=== PATIENT | male | born 1960 | race Caucasian/White ===

== ENCOUNTER 2024-12-13 09:21 | Emergency (ER) | payer BC, MEDICARE, SELFPAY ==
--- OUTSIDE RECORDS SUMMARY | 2024-05-20 08:30 | XMS_ITS ---
Author Organization [facility] y & Otolaryngology [facility], [facility] Address [address], [place] [id number] Care Team Providers Care Continuity Writer Name Role Phone Sharla Marrero MD Primary Care Provider Unavail Stephan Turner Unavailable [phone] REASON FOR VISIT F/U AND BARIUM SWALLOW RSLTS Encounters Encounter Location Date Provider Diagnosis [facility] [place] [place], [place] [address] [facility] [address] [place] [address] 05/20/2024 Stephan Mota Plan Of Treatment Next Appt Details Provider Name:Stephan owens, 01/06/2025 02:10:00 PM, [address] [facility], [address], [place], [address], Progress Notes * AUSTIN GUZMANDOB: (64 yo M)Acc No.[id number]:05/20/2024 UNLOCKED PROGRESS NOTE Established office visit w/o ut test Patient: AUSTIN FOWLER Provider: Pa Mota MD :1960 A ge:63 Y S ex:Male Date:05/20/2024 Address:[address] [place] [address] [place] Pcp:Sharla Marrero MD Subjective: * Chief Complaints: * F /U AND BARIUM SWALLOW RSLTS * Electronic signature of Gonzalez Mota MD on 12/13/2024 at 01:19 PM EDT Sign off status: Pending * Provider: Pa Mota MD Date: 0 05/20/2024 Generated for Nichelle sierra/Medina/Kavonitting on: 1 01:19 PM EDT
--- OUTSIDE RECORDS SUMMARY | 2024-07-15 09:30 | XMS_ITS ---
Author Organization [facility] inic Address [address] [place] [address] Care Team Providers Care Sports Marketing Internship Name Role Phone Bharath Killian Primary Care Provider DARIEL Severion Unavailable [phone] Allergies No Known Allergies REASON FOR VISIT new sleep eval Medications Medication SIG (Take, Route, Frequency, Duration) Notes Start Date End Date Status clonazePAM Active Temazepam 30 MG Capsule 1 capsule at bed time as needed Orally Once a day Active Levothyroxine Sodium 125 MCG Tablet 1 tablet in the morning on an empty stomach Orally Once a day Active Sertraline HCl 50 MG Tablet 1 tablet Ora lly Once a day Active Jardiance 25 MG Tablet 1 tablet in the m orning Orally Once a day Active Carvedilol 12.5 MG Tablet 1 tablet with food Orally Twice a day Active Atorvastatin Calcium 40 MG Tablet 1 tablet Orally Once a day Active Xarelto 20 MG Tablet 1 tablet with food Orally Once a day Active Problems Problem Type SNOMED Code ICD Code Onset Dates Problem Status W/U Status Risk Notes Problem Primary insomnia (4328246) Chronic Insomnia Disorder (F51.01) Active confirmed Vital Signs Height 69 in 07/15/2024 Weight 180 lbs 07/15/2024 BMI 26.58 kg/m2 07/15/2024 Encounters Encounter Location Date Provider Diagnosis [facility] [address] [place] [address] 07/15/2024 DARIEL LOWRY Obstructive sleep apnea (adult) (pediatric) G47.33 and Chronic Insomnia Disorder F51.01 Assessments Encounter Date Diagnosis (ICD Code) Assessment Notes Treatment Notes Treatment Clinical Notes Section Notes 07/15/2024 Obstructive sleep apnea (adult) (pediatric) (ICD-10 - G47.33) NURSE VISIT: For mask fitting 07/15/2024 Chronic Insomnia Disorder (ICD-10 - F51.01) Move bedtime to 11:30PM Take melatonin 1 mg of melatonin 2 hts before bedtime. I would like to taper down temazepam and clonazepam and change to ambien, lunesta or zeleplon Plan Of Treatment Treatment Notes Assessment Notes Obstructive sleep apnea (adult) (pediatr ic) NURSE VISIT: For mask fitting Chronic Insomnia Disorder Move bedtime to 11:30PM Take melatonin 1 mg of melatonin 2 hts before bedtime. I would like to taper down temazepam and clonazepam and change to ambien, lunesta or zeleplon Pending Test Test Name Order Date CPAP download 07/15/2024 Next Appt Details Follow Up: 4 Weeks, Reason: CHRONIC INSOMNIA MANAGEMENT History and Physical Notes * HPI (History of Present Illness) Category Sub-Category Detail Notes Category Not es RECENT INVESTIGATIONS: The p atient reports he is unable to sleep, he fall asleep quick and after 2 hrs he toss and turn, he has sleep apnea and sleeps with a CPAP device. He has been going through cancer treatment for about 4 years, he has neck cancer and unable to swallow, he is using [place] get [place] the [place]. He was 330lbs and now he is 180lbs. He goes to bed most of the time around 10:00pm, and takes. His sleep window is around 10:30 PM, when he wakes up he tries to go back to sleep, and get up around 4:30AM becuase he could not sleep. Examination Category Sub-Category Detail Notes Category Not es General Examination GENERAL APPEARANCE: normal, alert, in no acute distress, well developed, well nourished Progress Notes * GUILLERMOIsaiah STRONGDOB: [birth year] (64 yo M)Acc No.[id number]:07/15/2024 Patient: Isaiah Gilbert Provider: Lissett LOWRY MD :1960 A ge:63 Y S ex:Male Date:07/15/2024 Address:[address] [place] [address] , [facility] Pcp:Bharath [place] Subjective: * Chief Complaints: * N ew sleep eval * HPI: R ECENT INVESTIGATIONS:: The patient reports he is unable to sleep, he fall asleep quick and after 2 hrs he toss and turn, he has sleep apnea and sleeps with a CPAP device. He has been going through cancer treatment for about 4 years, he has neck cancer and unable to swallow, he is using [place]AP which [place] get from the [place]. He was 330lbs and now he is 180lbs. He goes to bed most of the time around 10:00pm, and takes. His sleep window is around 10:30 PM, when he wakes up he tries to go back to sleep, and get up around 4:30AM becuase he could not sleep. * Medical History: YING Chronic insomnia Neck cancer H/o quadruple bypass h/o left arm DVT Medical History Verified * Medications: T akingJardiance 25 MG Tablet 1 tablet in the morning Orally Once a day Sertraline HCl 50 MG Tablet 1 tablet Orally Once a day Levothyroxine Sodium 125 MCG Tablet 1 tablet in the morning on an empty stomach Orally Once a day Atorvastatin Calcium 40 MG Tablet 1 tablet Orally Once a day Xarelto 20 MG Tablet 1 tablet with food Orally Once a day Carvedilol 12.5 MG Tablet 1 tablet with food Orally Twice a day clonazePAM Temazepam 30 MG Capsule 1 capsule at bedtime as needed Orally Once a day Medication List reviewed and reconciled with the patientTaking Jardiance 25 MG Tablet 1 tablet in the morning Orally Once a day Taking Sertraline HCl 50 MG Tablet 1 tablet Orally Once a day Taking Levothyroxine Sodium 125 MCG Tablet 1 tablet in the morning on an empty stomach Orally Once a day Taking Atorvastatin Calcium 40 MG Tablet 1 tablet Orally Once a day Taking Xarelto 20 MG Tablet 1 tablet with food Orally Once a day Taking Carvedilol 12.5 MG Tablet 1 tablet with food Orally Twice a day Taking clonazePAM Taking Temazepam 30 MG Capsule 1 capsule at bedtime as needed Orally Once a day Medication List reviewed and reconciled with the patient * Allergies: N .K.D.A.yesAllergies Verified. Objective: * Vitals: H t:69in, Wt:180lbs, BMI:26.58Index, Ht-cm: 175.26 cm, Wt-k.65 kg. * Examination: G eneral Examination: GENERAL APPEARANCE: n ormal, alert, in no acute distress, well developed, well nourished. Assessment: * Assessment: 1. O bstructive sleep apnea (adult) (pediatric) - G47.33 (Primary) 2 . C hronic Insomnia Disorder - F51.01 Plan: * Treatment: Notes: NURSE VISIT: For mask fitting???2.?Chronic Insomnia Disorder? Notes: Move bedtime to 11:30PM Take melatonin? 1 mg of melatonin 2 hts before bedtime.? I would like to taper down temazepam and clonazepam and change to ambien, lunesta or zeleplon? ? * Follow Up: 4 Weeks (Reason: CHRONIC INSOMNIA MANAGEMENT) Billing Information: * Procedure Codes: * Electronic signature of THERESE LOWRY MD on 12/13/2024 at 01:20 PM EDT Sign off status: Pending * Provider: Lissett LOWRY MD Date: 0 07/15/2024 Generated for Nichelle sierra/Medina/Kavonitting on: 1 01:20 PM EDT
--- OUTSIDE RECORDS SUMMARY | 2024-07-30 04:30 | XMS_ITS ---
Author Organization [facility] inic Address [address] [facility] [place] [address] Care Team Providers Care Academic Registrar Name Role Phone Bharath Killian Primary Care Provider DARIEL Severino Unavailable [phone] REASON FOR VISIT Cpap maintenance , Cpap education,, filter changed, mask fitting Medications Medication SIG (Take, Route, Frequency, Duration) Notes Start Date End Date Status Xarelto 20 MG Tablet 1 tablet with food Orally Once a day Active Atorvastatin Calcium 40 MG Tablet 1 tablet Orally Once a day Active Temazepam 30 MG Capsule 1 capsule at bed time as needed Orally Once a day Active clonazePAM Active Carvedilol 12.5 MG Tablet 1 tablet with food Orally Twice a day Active Sertraline HCl 50 MG Tablet 1 tablet Ora lly Once a day Active Jardiance 25 MG Tablet 1 tablet in the m orning Orally Once a day Active Levothyroxine Sodium 125 MCG Tablet 1 tablet in the morning on an empty stomach Orally Once a day Active Encounters Encounter Location Date Provider Diagnosis [facility] [address] [place] [address] 07/30/2024 DARIEL ARBOLEDA Plan Of Treatment No Information History and Physical Notes * HPI (History of Present Illness) Category Sub-Category Detail Notes Category Not es CURRENTLY THE PATIENT REPORTS THE FOLLOWING COMPLAINTS Patient has a resmed machine from the [place]. He is getting supplies from [place]. He has an diane renetta resp FF mask. The mask is leaking , it does have a tear. Recommendation: patient should clean mask regularly and change this mask because it has worn out. the filter needs to be changed also regularly. Gave patient a sample filter . He will ask for more supplies from [place] and change his mask . He will f/up with Dr Arboleda in October Progress Notes * Isaiah CORDOVADOB: [birth year] (64 yo M)Acc No.[id number]:07/30/2024 CPAP Visit Patient: Isaiah Gilbert Provider: Lissett ARBOLEDA MD :1960 A ge:63 Y S ex:Male Date:07/30/2024 Address:[address] [place] [address] , [facility] [id number] Pcp:Bharath [place] Subjective: * Chief Complaints: * C pap maintenance , Cpap education,Filter changedMask fitting * HPI: C URRENTLY THE PATIENT REPORTS THE FOLLOWING COMPLAINTS: Patient has a resmed machine from the [place]. He is getting supplies from [place]. He has an diane renetta resp FF mask. The mask is leaking , it does have a tear. Recommendation: patient should clean mask regularly and change this mask because it has worn out.? the filter needs to be changed also regularly. Gave patient a sample filter . He will ask for more supplies from [place] and change his mask . He will f/up with Dr Arboleda in October. * Medications: T akingJardiance 25 MG Tablet [...] bedtime as needed Orally Once a day Taking Jardiance 25 MG Tablet 1 tablet in [...] bedtime as needed Orally Once a day Plan: * Procedure Codes: 9 4660 POS AIRWAY PRESSURE, CPAP Billing Information: * Procedure Codes: 78158 POS AIRWAY PRESSURE, CPAP. * Electronic signature of THERESE ARBOLEDA MD on 12/13/2024 at 01:19 PM EDT Sign off status: Pending * Provider: Lissett ARBOLEDA MD Date: 0 07/30/2024 Generated for Nichelle sierra/Medina/eTransmitting on: 1 01:19 PM EDT
--- OUTSIDE RECORDS SUMMARY | 2024-10-26 08:30 | XMS_ITS ---
Author Organization [facility] y & Otolaryngology [facility] Address [address] [place], [place] [id number] Care Team Providers Care Virtual Office Assistant Name Role Phone Sharla Marrero MD Primary Care Provider Stephan Parr Unavailable [phone] Allergies No Known Allergies REASON FOR VISIT coughing up blood, skin rash in his cheeks Medications Medication SIG (Take, Route, Frequency, Duration) Notes Start Date End Date Status Xarelto 20 MG Tablet Oral; Duration: 30 Days Active Keytruda Active Jardiance 25 MG Tablet Oral; Duration: 90 Days Active amLODIPine Besylate 10 MG Tablet Oral; Duration: 90 Days Acti ve Atorvastatin Calcium 40 MG Tablet Oral; Duration: 90 Days Acti ve Carvedilol 3.125 MG Tablet Oral; Duration: 30 Days Active Social History Tobacco Use: Social History Observation Description Date Details (start date - stop date) Never Smoker NA - NA Social History Alcohol/Drugs: Social Info Question Answer Notes Drugs Have you used drugs other than those for medical reasons in the past 12 months? No Drug/Alcohol: Social Info Question Answer Notes AUDIT-C (Standard) Did you have a drink containing alcohol in the past year? Yes How often did you have a drink containing alcohol in the past year? Never (0 point) How many drinks did you have on a typical day when you were drinking in the past year? 1 or 2 drinks (0 point) How often did you have six or more drinks on one occasion in the past year? 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 Problem Coughing up blood (74891194) Coughing up blood (R04.2) Active confirmed Vital Signs Temperature 96.8 degrees Fahrenheit 10/27/19 25 Blood pressure systolic 133 mm Hg 10/27/19 25 Blood pressure diastolic 81 mm Hg 025 Heart Rate 59 /min 10/26/2024 Respiratory Rate 16 /min 10/26/2024 Height 69 in 10/26/2024 Weight 180 lbs 10/26/2024 BMI 26.58 kg/m2 10/26/2024 Oximetry 96 % 10/26/2024 Procedures Procedure Date Ordered Date Performed Result Body Sit e FLEXIBLE LARYNGOSCOPY (CURRENT ORDER) 10/26/2024 N/A Encounters Encounter Location Date Provider Diagnosis [facility] [address] [place], [place] [phone] 10/26/2024 Stephan Mota Carcinoma of tongue C02.9 ; Coughing up blood R04.2 and Oropharyngeal dysphagia R13.12 Assessments Encounter Date Diagnosis (ICD Code) Assessment Notes Treatment Notes Treatment Clinical Notes Section Notes 10/26/2024 Carcinoma of tongue (ICD-10 - C02.9) 10/26/2024 Coughing up blood (ICD-10 - R04.2) 10/26/2024 Oropharyngeal dysphagia (ICD-10 - R13.12) Plan Of Treatment Next Appt Details Follow Up: 1 Week, Reason: L abs results Provider Name:Stephan owens, 01/06/2025 02:10:00 PM, [address] [facility], [address], [place], [address], History and Physical Notes * HPI (History of Present Illness) Category Sub-Category Detail Notes Category Not es THROAT Problems Since 2 week s ago, the patient had a sunburn which started peeling, and then it became itchy, so he scratched himself at night and now has bloody, purple scabs along with a rash. The patient states that since 3 weeks ago, he has been having cough productive with blood clots, and he was admitted to the hospital for a pneumonia and was treated with antibiotics, however, his cough has not improved. He states that the cough comes with blood clots and sometimes with pink spots, and prado his throat. He states that the back of his throat is on fire when he coughs. Patient is s/p left hemiglossectomy/mandibulectomy SCCA. 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 He also states that after coughing, he was pain when swallowing Examination Category Sub-Category Detail Notes Category Not es General Examination GENERAL APPEARANCE: normal, alert, well hydrated, in no distress , well developed, well nourished HEAD: normocephalic, atrau matic EYES: pupils equal, round, reactive to light and accommodation EARS: bilateral , normal, auditory canal clear, hearing intact to whispered voice, tympanic membrane intact, clear NOSE: No evidence of nasal polyps or tumors, no pus, no synechiae, septum deviated to the left with spur, turbinate hypertrophy, petechiae in the back of the nose. THROAT: clear NECK/THYROID: Neck supple, full ra nge of motion, no cervical lymphadenopathy, evidence of Left modified neck dissection MRND SKIN: multiple bilateral f acial excoriations and dried blood consistent with pruritus described LYMPH NODES: normal, no cervical adenopathy ORAL CAVITY: mucosa moist, L base of tongue and palate defect, NERD Progress Notes * AUSTIN GUZMANDOB: (64 yo M)Acc No.[id number]:10/26/2024 UNLOCKED PROGRESS NOTE Established office visit w/o ut test Patient: AUSTIN FOWLER Provider: Pa Mota MD :1960 A ge:63 Y S ex:Male Date:10/26/2024 Address:[address] [place] [address] , [id number] Pcp:Sharla Marrero MD Subjective: * Chief Complaints: * C oughing up bloodSkin rash in his cheeks * HPI: T HROAT Problems: Since 2 weeks ago, the patient had a sunburn which started peeling, and then it became itchy, so he scratched himself at night and now has bloody, purple scabs along with a rash. The patient states that since 3 weeks ago, he has been having cough productive with blood clots, and he was admitted to the hospital for a pneumonia and was treated with antibiotics, however, his cough has not improved. He states that the cough comes with blood clots and sometimes with pink spots, and prado his throat. He states that the back of his throat is on fire when he coughs. Patient is s/p left hemiglossectomy/mandibulectomy SCCA. 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 He also states that after coughing, he was pain when swallowing. * ROS: G eneral/Constitutional: Denies F ever. D enies C hills. D enies m alaise. E ndocrine: Denies C old intolerance. D enies D ifficulty sleeping. D enies E xcessive sweating. D enies E xcessive thirst. D enies F requent urination. D enies W eakness. D enies W eight loss. . .Ophthalmologic: Denies E ye pain. D enies V ision loss. D enies?Excessive tears. D enies B lurred vision. D enies D iplopia. D enies I rritation. D enies D ischarge. D enies P hotophobia. E NT: ... S ee HPI. C ardiovascular: Denies C hest pains. D enies P alpitations. D enies S yncope. D enies D yspnea on exertion. D enies O rthopnea. D enies?PND. D enies P eripheral edema. R espiratory: Denies C ough. D enies D yspnea. D enies E xcessive sputum. D enies H emoptysis. D enies W heezing. . .Gastrointestinal: Denies N ausea. D enies V omiting. D enies D iarrhea. . .Musculoskeletal: Denies B ack pain. D enies J oint pain. D enies?Joint swelling. D enies M uscle cramps. D enies M uscle weakness. D enies?Stiffness. . .Skin: Denies R nikkie. D enies I tching. D enies U lcers/growths. D enies E xcess scarring. D enies B leeding problems. D enies D ryness. D enies S uspicious lesions. N eurologic: Denies T ransient paralysis. D enies W eakness.?Denies P aresthesias. D enies S eizures. D enies S yncope. D enies T remors. D enies V ertigo. L ymphatic: Denies A bnormal bruising. D enies B leeding. D enies E nlarged lymph nodes. A llergy/Immunology: Denies U rticaria. D enies P ersistent infections.?Denies H IV exposure. * Medical History: Cancer head and neck 2019 - remission - 2022 Hx of Heart attack 10/2023 GERD Medical History Verified * Surgical History: anterior neck mass removal Tongue reconstruction 2021 quadruple bypass lung partial resection 2022 lymphectomy ( 9 lymph nodes) Surgical History verified. * Hospitalization/Major Diagno stic Procedure: Denies Past Hospitalization. Hospitalization Verified. * Family History: N o Family History documented.. F amily History Verified.. * Social History: T obacco Use: T obacco Control (Standard) T obacco use: N onsmoker A lcohol/Drugs: D rugs H ave you used drugs other than those for medical reasons in the past 12 months? N o D rug/Alcohol: A JULIANO-C (Standard) D id you have a drink containing alcohol in the past year? Y es H ow often did you have a drink containing alcohol in the past year? N ever (0 point) H ow many drinks did you have on a typical day when you were drinking in the past year? 1 or 2 drinks (0 point) H ow often did you have six or more drinks on one occasion in the past year? 2 to 4 times a month (2 points) P oints 2 I nterpretation N egative S ocial History Verified. * Medications: T Sai Jardiance 25 MG Tablet Oral Carvedilol 3.125 MG Tablet Oral Atorvastatin Calcium 40 MG Tablet Oral amLODIPine Besylate 10 MG Tablet Oral Xarelto 20 MG Tablet Oral Medication List reviewed and reconciled with the patientTaking Benji Taking Jardiance 25 MG Tablet Oral Taking Carvedilol 3.125 MG Tablet Oral Taking Atorvastatin Calcium 40 MG Tablet Oral Taking amLODIPine Besylate 10 MG Tablet Oral Taking Xarelto 20 MG Tablet Oral Medication List reviewed and reconciled with the patient * Allergies: N .K.D.A.yesAllergies Verified. Objective: * Vitals: T emp:96.8F, HR:59/min, BP:133/81mm Hg, Ht: 69 in, Wt:180lbs, BMI:26.58Index, RR:16/min, Oxygen sat %:96%, Ht-cm: 175.26 cm, Wt-k.65 kg. * Examination: G eneral Examination: GENERAL APPEARANCE: n ormal, alert, well hydrated, in no distress , well developed, well nourished. HEAD: n ormocephalic, atraumatic. EYES: p upils equal, round, reactive to light and accommodation. EARS: b ilateral , normal, auditory canal clear, hearing intact to whispered voice, tympanic membrane intact, clear. NOSE: N o evidence of nasal polyps or tumors, no pus, no synechiae, septum deviated to the left with spur, turbinate hypertrophy, petechiae in the back of the nose.. ORAL CAVITY: m ucosa moist, L base of tongue and palate defect, NERD. THROAT: c lear. NECK/THYROID: N umberto supple, full range of motion, no cervical lymphadenopathy, evidence of Left modified neck dissection MRND. LYMPH NODES: n ormal, no cervical adenopathy. SKIN: m ultiple bilateral facial excoriations and dried blood consistent with pruritus described. Assessment: * Assessment: 1. C oughing up blood - R04.2 (Primary) 2 . C arcinoma of tongue - C02.9? 3. O ropharyngeal dysphagia - R13.12 Plan: * Treatment: 2. C arcinoma of tongue L AB: HEPATIC FUNCTION PANEL (Ordered for 10/26/2024) (Collection Date & Time - 11/04/2024) ?LAB: CBC (INCLUDES DIFF/PLT) (Ordered for 10/28/2024) (Collection Date & Time - 11/04/2024)* Warren Francois 10/26/2024 02:32:41 PM EDT > STAT ?LAB: COMPREHENSIVE METABOLIC PANEL (Ordered for 10/28/2024) (Collection Date & Time - 11/04/2024)* Warren Francois 10/26/2024 02:32:52 PM EDT > STAT ?LAB: PT AND PTT (Ordered for 10/28/2024) (Collection Date & Time - 11/04/2024)* Warren Francois 10/26/2024 02:33:02 PM EDT > STAT * Procedures: F lexible Laryngoscopy: Mirror exam was unable to adequately visualize the vocal cords. Under topical anesthesia, the base of the tongue, epiglottis, vallecula, pyriform arytenoids, false and true cords, and postcricoid regions were examined using a flexible scope. All of the above structures were normal except for moderate laryngeal edema. The vocal cords were mobile, and there were no masses,septum deviated to the left with spur, turbinate hypertrophy, petechiae in the back of the nose and throat. * Procedure Codes: G 8427 DOC MEDS VERIFIED W/PT OR [id number] Pt scrn tbco id as non [id number] TOBACCO [id number] FLEXIBLE LARYNGOSCOPY * Preventive Medicine: Counseling: B SC Care goal follow-up plan: Above Normal BMI Follow-up D ietary management education, guidance, and counseling * Follow Up: 1 Week (Reason: Labs results) Billing Information: * Procedure Codes: G8427 DOC MEDS VERIFIED W/PT OR RE. G9903 Pt scrn tbco id as non user. 1036F TOBACCO NON-USER. [id number] FLEXIBLE LARYNGOSCOPY. * Electronic signature of Gonzalez Mota MD on 12/13/2024 at 01:19 PM EDT Sign off status: Pending * Provider: Pa Mota MD Date: 0 10/26/2024 Generated for Nichelle sierra/Medina/Tristan on: 1 01:19 PM EDT
--- NOTE | ~2024-12-13 | CT_ITS ---
CTA CHEST CLINICAL HISTORY: sob, hx throat cancer, spitting up blood . COMPARISON: Chest x-ray today TECHNIQUE: Helical CTA performed from thoracic inlet to upper abdomen IV contrast information not listed in PACS Coronal, sagittal reformats. Multiplanar MIPS CT images acquired with automatic exposure control for dose reduction DLP: 565 mGy-cm FINDINGS: Pulmonary arteries: No PE. Thoracic Aorta: Ascending aortic fusiform aneurysmal ectasia at 4.5 cm. Upper SVC stenosis. Consequent collateral veins. Heart/pericardium: Unremarkable. RV/LV ratio: Normal. Lungs/Pleura: Scattered bilateral airspace disease. Tracheobronchial tree: Patent. Nodes: No enlarged nodes. Small mediastinal and hilar nodes Bones: No acute bony abnormality. Soft tissues: Unremarkable. Visualized upper abdomen: G-tube. Hepatosplenomegaly. Stomach distended. Distal esophageal fluid. IMPRESSION: 1. Bilateral multifocal airspace disease, strongly consider aspiration or superimposed aspiration given below. 2. Distal esophagus fluid-filled and stomach dilated with fluid. 3. G-tube in place but retention balloon within central lumen, would probably benefit from retracting balloon to appose anterior abdominal wall and then reapposing dermal skin disc to abdominal wall 4. No PE. 5. Fusiform aneurysmal ectasia of ascending thoracic aorta at 4.5 cm. Recommend surveillance in one year. 6. Small nonspecific mediastinal nodes. Malignancy cannot be excluded given history of cancer. 7. Severe SVC stenosis. Reviewed, dictated and finalized at location R. IMPRESSION: 1. Bilateral multifocal airspace disease, strongly consider aspiration or supe rimposed aspiration given below. 2. Distal esophagus fluid-filled and stomach dilated with fluid. 3. G-tube in place but retention balloon within central lumen, would probably benefit from retracting balloon to appose anterior abdominal wall and then reap posing dermal skin disc to abdominal wall 4. No PE. 5. Fusiform aneurysmal ectasia of ascending thoracic aorta at 4.5 cm. Recommen d surveillance in one year. 6. Small nonspecific mediastinal nodes. Malignancy cannot be excluded given hi story of cancer. 7. Severe SVC stenosis.
--- NOTE | ~2024-12-13 | XR_ITS ---
Examination: XR chest 2V Clinical History: SOB COUGH Comparison: None Technique: PA and Lateral Findings: Right chest Mediport Cardiomediastinal silhouette normal size and configuration. Scattered small patchy bilateral airspace disease. No acute bony abnormality. IMPRESSION: 1. Bilateral multifocal pneumonia. Reviewed, dictated and finalized at location R.
[2024-12-13 09:31] VITALS: BP 98/66; PULSE 85; RESP 20; TEMP 36.8; O2SAT 98
--- NOTE | 2024-12-13 09:45 | ECG_ITS ---
Test Date: 2024-12-13 09:53:42 Measurements Intervals [place] Rate: 79 P: 16 WI: 140 QRS: -55 QRSD: 109 T: -1 QT: 376 QTc: 432 Interpretive Statements SINUS RHYTHM WITH OCCASIONAL VENTRICULAR PREMATURE COMPLEXES LOW QRS VOLTAGE IN PRECORDIAL LEADS INCOMPLETE RIGHT BUNDLE BRANCH BLOCK LEFT ANTERIOR FASCICULAR BLOCK BORDERLINE ST-T WAVE ABNORMALITY- INFERIOR LEADS BASELINE ARTIFACT- I, II ABNORMAL ECG No previous ECG available for comparison Electronically Signed On 12-13-2024 10:15:42 CDT by Koby Talbot D.O.
[2024-12-13 09:46] VITALS: BP 128/71; PULSE 79; RESP 20; TEMP 36.7; O2SAT 99
[2024-12-13 09:49] VITALS: O2SAT 100
[2024-12-13 10:02] LABS: Hematocrit 41.6 % (42.0-52.0); Hemoglobin 13.5 g/dL (14.0-18.0); Immature Granulocyte Percent A 1.1 % (0-0.5); Lymphocytes Absolute Auto 0.76 K/mm3 (0.9-3.2); Mean Corpuscular HGB Conc 32.5 g/dl (32-36); Mean Corpuscular Hemoglobin 30.3 pg (26-34); Mean Corpuscular Volume 93.3 fl (80-100); Nucleated Red Blood Cells Absolute Auto 0.000 K/mm3 (0.0-0.012); Nucleated Red Blood Cells Perc 0.0 % (0.0-0.2); Platelet Count Result 271 k/mm3 (150-375); Red Blood Count 4.46 M/mm3 (4.6-6.20); White Blood Count 9.7 K/mm3 (4.5-10.0)
--- NOTE | 2024-12-13 10:23 | ED.SOB ---
HPI - SOB/Dyspnea General Chief Complaint: Shortness of Breath/Dyspnea Stated Complaint: SOB, cancer pt, spitting up blood Time Seen by Provider: 12/13/24 10:06 Source: patient and family Mode of arrival: ambulatory Limitations: other (altered phonation secondary to history but generally easy to understand) History of Present Illness HPI Narrative: Patient presents with concern for shortness of breath. Patient is visiting from [place], due to go back later this week. He has a history of throat cancer diagnosed 3 years ago and underwent radiation and chemotherapy. Had been on Keytruda but no longer. Patient reportedly spitting up blood. In general he has had a productive cough of green, yellow, and brown sputum. There was report of both hemoptysis as well as hematemesis. He has a feeding tube. He has issues with balance and for this he has a scopolamine patch. Denies any fevers but has occasionally been chilled although notes this is a longstanding chronic issue. Has underlying heart problems in that he previously had a stent and then underwent quadruple bypass/CABG in October 2023 in [place]. He is on Xarelto. This is for history of DVT in the left upper extremity. He has been fatigued lately. Denies any sick contacts. Has underlying lung issues, reportedly has bronchiectasis. Denies any abdominal pain. Has had issues with aspiration. Does not take any food/meds PO due to dysphagia. Medical history/documentation had been faxed from [place]. Entered into EMR. Also includes notation of dealing with various oropharyngeal and other ulcerations. 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 HEAD: Normocephalic, atraumatic. Scopolamine patch behind right ear. EYES: Non injected, non icteric ENT: Nares clear, no rhinorrhea or epistaxis. Gross auditory acuity intact. NECK: Supple. No meningismus though asymmetric. CHEST: Speaking in full sentences. No respiratory distress. HEART: Regular rate and rhythm. . ABDOMEN: Soft, nondistended. No rigidity or guarding. Not peritoneal. Feeding tube. EXTREMITIES: Normal range of motion. No lower extremity edema. SKIN: Warm, dry. Various lesions on head and mucous membranes. NEURO: No focal deficits. Alert and oriented. Answering questions. Following commands. Speech without aphasia although at times difficult to understand . PSYCH: Normal mood and affect. Course Vital Signs Vital signs: Vital Signs Temperature 98.2 F 12/13/24 09:31 Pulse Rate 85 12/13/24 09:31 Respiratory Rate 20 12/13/24 09:31 Blood Pressure 98/66 L 12/13/24 09:31 Pulse Oximetry 98 12/13/24 09:31 Oxygen Delivery Room Air 12/13/24 09:31 Temperature 98.0 F 12/13/24 09:46 Pulse Rate 92 12/13/24 13:24 Respiratory Rate 18 12/13/24 13:24 Blood Pressure 115/82 12/13/24 13:24 Pulse Oximetry 98 12/13/24 13:24 Oxygen Delivery Room Air 12/13/24 09:49 MDM - SOB/Dyspnea MDM Narrative Medical decision making narrative: Patient presents with shortness of breath and reportedly spitting up blood which is reported to be both hemoptysis as well as hematemesis. In general he has had a productive cough of green/yellow/brown sputum and has been occasionally chilled as well as fatigued. In the emergency department he is afebrile with vital signs notable for hypotension (though MAP >75mmHg) however resolved on repeat assessment without interval intervention. Will proceed with CTA PE imaging given high pretest probability given history of cancer and report of spitting up blood; will defer obtaining D dimer before. No leukocytosis. Normocytic anemia with no prior for comparison. Mild hyperglycemia without anion gap or acidosis. Normal renal function. Normal troponin. BNP is mildly elevated although not greater than 900 which would be the reference range of the assay for patient's age. TSH is low. T4 and T3 are ordered. Viral swab negative. CXR and CT both concerning for multilobar PNA, suspect aspiration. CURB-65 score Confusion (No 0, Yes +1): 0 BUN >19mg/dl (No 0, Yes +1): 0 RR >/= 30 (No 0, Yes +1): 0 SBP <90mmHg or DBP </=60mmHg (No 0, Yes +1): 0 Age >/=65 (No 0, Yes +1): 0 Result = 0 points, low risk Recommend outpatient treatment VERSUS PSI/PORT Score: Pneumonia Severity Index for CAP Age: 64 years Sex (F -10; Male 0): 0 [facility] resident (No 0, Yes +10): 0 Neoplastic disease (No 0, Yes +30): 30 Liver disease history (No 0, Yes +20): 0 CHF history (No 0, Yes +10):0 Cerebrovascular disease history (No 0, Yes +10):0 Renal disease history (No 0, Yes +10):0 Altered mental status (No 0, Yes +20):0 RR >/=30 breaths/min (No 0, Yes +20):0 SBP <90mmHg (No 0, Yes +20):0 Temp <35C (95F) or >39.9C (103.8F) - (No 0, Yes +15):0 Pulse >/=125 beats/min (No 0, Yes +10):0 pH <7.35 (No 0, Yes +30): not assessed BUN >/=30 mg/dL or >/=11mmol/L (No 0, Yes +20): 0 Na <130mmol/L (No 0, Yes +20): 0 Glucose >/=250mg/dl (No 0, Yes +10): 0 Hct <30% (No 0, Yes +10): 0 partial pressure of oxygen <60mmHg (No 0, Yes +10): not assessed Pleural effusion on xray (No 0, Yes +10): 0 Result: 92?points Risk Class IV, 8.2-9.3% mortality. Hospitalization recommended based on risk. Moderate risk === DRIP Score - predicts risk for CAP d/t drug-resistant pathogens Antibiotic use within 60 days (No 0, Yes +2): 2 (doxycycline) care home care resident (No 0, Yes +2): 0 Tube feeding (No 0, Yes +2): 2 Prior drug-resistant pneumonia Dx within 1 year (No 0, Yes +2) : 0 Hospitalization within 60 days (No 0, Yes +1): 0 Chronic pulmonary disease (No 0, Yes +1): 1 Poor functional status (No 0, Yes +1): 0 H2 jeffry or PPI within 14 days (No 0, Yes +1): 1 Active wound care at time of admission (No 0, Yes +1): 0 MRSA colonization within 1 year (No 0, Yes +1):0 Total: 6 - high risk == T3 and T4 normal. I suspect subclinical hyperthyroidism He does note a dose change in levothyroxine by PCP. Set to go back home on the , currently planning on flying though may have family member drive and/or meet half way. I advised that for either I would be recommended that because he is immunosuppressed that he wear mask for his safety as well as the safety of others. Noted that it would be important that he feels up to either. They are in discussion of potentially heading home early as result. Again, I noted that what patient felt he could /could not tolerate would be important. Patient is offered admission however he would like to proceed with p.o. antibiotics. We discussed the low threshold of admitting for IV antibiotics given his comorbidities/risk factors. Shared decision making with patient and his family. At this time he is up and standing and appears less acutely ill although remains chronically unwell at baseline. 1 blood culture was obtained; verbally told tech could abstain from 2nd culture. Will prescribe azithromycin and, given recent ABX exposure, comorbidities, will add beta-lactam - high dose Augmentin. Patient does not swallow PO so has to be in feeding tube. First dose given in the ED. I did note that if patient were to stay in the area over the next several days and was worsening I strongly recommended that he really present to this emergency department for continuity of care. Alternatively, I indicated that if he got back home or had to stop at any other facility, records could be requested from here. Differential Diagnosis Differential diagnosis: Likely community acquired pneumonia, pulmonary embolism and other (Thyroid dysfunction, acute viral syndrome, bronchitis; considered other etiologies of hemoptysis) Medical Records Attestation: I reviewed the patient's medical records. Medical records narrative: Documentation faxed from [place] Lab Data Attestation: I reviewed the patient's lab results. 12/13/24 09:54 12/13/24 09:54 Labs: Lab Results 12/13/24 12/13/24 12/13/24 Range/Units 09:54 10:33 12:19 WBC 9.7 (4.5-10.0) K/mm3 RBC 4.46 L (4.6-6.20) M/mm3 Hgb 13.5 L (14.0-18.0) g/dL Hct 41.6 L (42.0-52.0) % MCV 93.3 (80-100) fl MCH 30.3 (26-34) pg MCHC 32.5 (32-36) g/dl RDW 12.8 (11.5-14.5) % Plt Count 271 (150-375) k/mm3 MPV 9.8 (7.4-10.4) fl Immature Gran % (Auto) 1.1 H (0-0.5) % Neut % (Auto) 78.8 H (45.5-73.1) % Lymph % (Auto) 7.9 L (18.3-44.2) % [place] % (Auto) 9.4 H (2.6-8.5) % Eos % (Auto) 2.2 (0-4.4) % Baso % (Auto) 0.6 (0.2-1.2) % Lymph # (Auto) 0.76 L (0.9-3.2) K/mm3 [place] # (Auto) 0.9 H (0.1-0.6) K/mm3 Eos # (Auto) 0.2 (0-0.3) K/mm3 Baso # (Auto) 0.1 (0.0-0.1) K/mm3 Abs Immat Gran (auto) 0.11 H (0.00-0.031) K/mm3 Absolute Neuts (auto) 7.6 H (1.3-6.7) K/mm3 Absolute Nucleated RBC 0.000 (0.0-0.012) K/mm3 Nucleated RBC % 0.0 (0.0-0.2) % Sodium 134 L (137-145) mmol/L Potassium 4.1 (3.4-5.0) mmol/L Chloride 94 L (98-107) mmol/L Carbon Dioxide 35 H (22-30) mmol/L Anion Gap 5 (4-12) mmol/L BUN 16 (9-20) mg/dL Creatinine 0.64 L (0.7-1.3) mg/dL Estim Creat Clear Calc 102 ml/min Estimated GFR > 60 (59 - ) Glucose 149 H (65-110) mg/dL Calcium 9.3 (8.4-10.2) mg/dL Total Bilirubin 0.7 (0.2-1.3) mg/dL AST 38 (17-59) U/L ALT 26 (6-50) U/L Alkaline Phosphatase 77 (38-126) U/L Total Creatine Kinase 91 (55-170) U/L Troponin I < 0.012 (0.000-0.034) ng/mL NT-Pro-B Natriuret Pep 858 H (19.9-100) pg/mL Total Protein 7.2 (6.3-8.2) g/dL Albumin 3.8 (3.5-5.1) g/dL TSH 0.222 L (0.465-4.680) uIU/mL Free T4 2.19 (0.78-2.19) ng/dL Free T3 pg/mL 3.67 (2.45-5.93) pg/mL Influenza A (RT-PCR) Negative (Negative) Influenza B (RT-PCR) Negative (Negative) RSV (RT-PCR) Negative (Negative) SARS-CoV-2 RNA (RT-PCR) Negative (Negative) 12/13/24 Range/Units 12:19 WBC (4.5-10.0) K/mm3 RBC (4.6-6.20) M/mm3 Hgb (14.0-18.0) g/dL Hct (42.0-52.0) % MCV (80-100) fl MCH (26-34) pg MCHC (32-36) g/dl RDW (11.5-14.5) % Plt Count (150-375) k/mm3 MPV (7.4-10.4) fl Immature Gran % (Auto) (0-0.5) % Neut % (Auto) (45.5-73.1) % Lymph % (Auto) (18.3-44.2) % [place] % (Auto) (2.6-8.5) % Eos % (Auto) (0-4.4) % Baso % (Auto) (0.2-1.2) % Lymph # (Auto) (0.9-3.2) K/mm3 [place] # (Auto) (0.1-0.6) K/mm3 Eos # (Auto) (0-0.3) K/mm3 Baso # (Auto) (0.0-0.1) K/mm3 Abs Immat Gran (auto) (0.00-0.031) K/mm3 Absolute Neuts (auto) (1.3-6.7) K/mm3 Absolute Nucleated RBC (0.0-0.012) K/mm3 Nucleated RBC % (0.0-0.2) % Sodium (137-145) mmol/L Potassium (3.4-5.0) mmol/L Chloride (98-107) mmol/L Carbon Dioxide (22-30) mmol/L Anion Gap (4-12) mmol/L BUN (9-20) mg/dL Creatinine (0.7-1.3) mg/dL Estim Creat Clear Calc ml/min Estimated GFR (59 - ) Glucose (65-110) mg/dL Calcium (8.4-10.2) mg/dL Total Bilirubin (0.2-1.3) mg/dL AST (17-59) U/L ALT (6-50) U/L Alkaline Phosphatase (38-126) U/L Total Creatine Kinase (55-170) U/L Troponin I (0.000-0.034) ng/mL NT-Pro-B Natriuret Pep (19.9-100) pg/mL Total Protein (6.3-8.2) g/dL Albumin (3.5-5.1) g/dL TSH (0.465-4.680) uIU/mL Free T4 (0.78-2.19) ng/dL Free T3 pg/mL Cancelled (2.45-5.93) pg/mL Influenza A (RT-PCR) (Negative) Influenza B (RT-PCR) (Negative) RSV (RT-PCR) (Negative) SARS-CoV-2 RNA (RT-PCR) (Negative) Imaging Data Radiologist's impression: Impressions Chest X-Ray 12/13/24 11:15 IMPRESSION: 1. Bilateral multifocal pneumonia. Chest CTA 12/13/24 11:16 IMPRESSION: 1. Bilateral multifocal airspace disease, strongly consider aspiration or superimposed aspiration given below. 2. Distal esophagus fluid-filled and stomach dilated with fluid. 3. G-tube in place but retention balloon within central lumen, would probably benefit from retracting balloon to appose anterior abdominal wall and then reapposing dermal skin disc to abdominal wall 4. No PE. 5. Fusiform aneurysmal ectasia of ascending thoracic aorta at 4.5 cm. Recommend surveillance in one year. 6. Small nonspecific mediastinal nodes. Malignancy cannot be excluded given history of cancer. 7. Severe SVC stenosis. ECG Data EKG #1: Attestation: I personally reviewed and interpreted this ECG as follows: ECG completion date: 12/13/24 ECG completion time: 09:53 Prior ECG tracings: not available for review (No prior for comparison) Interpretation: Normal sinus rhythm at a rate of 79 beats per minute. Patient does have a premature complex. FL interval 140 milliseconds, QRS 109. QT/QTC 376/432. Poor R-wave progression across the precordial leads. T-wave inversion in 3 and flat verses inverted in AVF but upright in contiguous inferior lead 2. T-wave inversion in V3, possibly due to lead placement. No other T-wave inversions in V4 through V6. Incomplete RBBB given QRS less [id number]; RSR' M-shaped pattern in V1-V3; wide, slurred S wave in lateral leads (I, aVL, V5-6). Left anterior fascicular block with rS complexes in leads II, III, aVF (small R waves, deep S waves), qR complexes in lead I , avL (small Q waves and tall R waves) and left axis deviation with Leads II, III and aVF negative and leads I and aVL positive. Discharge Plan Discharge Clinical Impression: Shortness of breath, Incomplete RBBB, Left anterior fascicular block, Normocytic anemia, Bilateral pneumonia, Aortic ectasia, Stenosis of superior vena cava, Hyperthyroidism, subclinical Patient Disposition: Home Condition: Stable Instructions: Antibiotic Form, Aspiration Pneumonia (DC), Subclinical Hyperthyroidism (ED), Anemia (ED), Pneumonia (ED), Shortness of Breath (ED) Additional Instructions: Take antibiotics as prescribed. Return to the emergency department with any new, worsening, unmanaged symptoms. Follow-up with your care team back in [place] including primary care, oncologist, etc. continue taking all of your other medications as prescribed. Patient Language: Polish Prescriptions: New azithromycin [Zithromax] 200 mg/5 mL suspension for reconstitution See Rx Instructions .ROUTE .COMPLEX Qty: 30 0RF Rx Instructions: take 6.25 mL (250 mg) via feeding tube daily for 4 days (days 2-5); already received first dose in ED 12/13 amoxicillin-pot clavulanate 600-42.9 mg/5 mL suspension for reconstitution 7.3 ml feeding tube BID 5 Days Qty: 73 0RF Rx Instructions: Received first dose in ED 12/13 Follow-up/Referrals: Dr Eugenie MD [Other] Referral Note: PCP per documentation PHYSICIAN NOT ON STAFF,NONSTAFF [Non-Staff] Stand Alone Forms: Work/School Release IP Time of Disposition: 13:38
[2024-12-13 10:41] VITALS: BP 114/73; PULSE 69; RESP 20; O2SAT 100
[2024-12-13 10:42] LABS: Alanine Aminotransferase 26 U/L (6-50); Albumin Level 3.8 g/dL (3.5-5.1); Alkaline Phosphatase 77 U/L (38-126); Anion Gap 5 mmol/L (4-12); Aspartate Amino Transferase 38 U/L (17-59); Bilirubin,Total 0.7 mg/dL (0.2-1.3); Blood Urea Nitrogen 16 mg/dL (9-20); Calcium 9.3 mg/dL (8.4-10.2); Carbon Dioxide 35 mmol/L (22-30); Chloride 94 mmol/L (98-107); Estimated CRCL calculation 102 ml/min; Estimated Glomerular Filt Rate > 60; Glucose 149 mg/dL (65-110); Potassium 4.1 mmol/L (3.4-5.0); Sodium 134 mmol/L (137-145); Total Protein 7.2 g/dL (6.3-8.2)
[2024-12-13 11:13] LABS: Creatine Kinase 91 U/L (55-170)
[2024-12-13 11:14] LABS: Influenza A QL RT-PCR Negative (Negative); Influenza B QL RT-PCR Negative (Negative); RSV RNA, RT-PCR Negative (Negative); SARS-CoV-2 RNA PCR Negative (Negative)
[2024-12-13 11:25] LABS: NT Pro B Type Natriuretic Pept 858 pg/mL (19.9-100); Troponin I < 0.012 ng/mL (0.000-0.034)
[2024-12-13 11:43] LABS: Thyroid Stimulating Hormone 0.222 uIU/mL (0.465-4.680)
--- OUTSIDE RECORDS SUMMARY | 2024-12-13 12:19 | XMS_ITS | Encounter Summary ---
Author Organization [facility] Address [address] [place] [address] Care Team Providers Care Commodity Director Name Role Phone Sharla Marrero MD Primary Care Provider [phone] Reason for Referral * Fluroscopy (Routine) - Closed Specialty Diagnoses / Procedures Referred By Contac t Referred To Contact Central Scheduling Diagnoses Dysphagia, unspecified type Procedures Speech Therapy - [facility] Modified Barium & Videofluroscopic Swallow (PAG, PAH,PFH, PHH, PNH, PNTH, PAR, PRH, PWH, PCH, PEM, PMM, PMH, IRVIN only Stephan Mota MD [address] [place] [address] Phone: tel: fax: [facility] [address] [facility] [address] [place] [address] Phone: tel: Referral ID Status Reason Start Date Expiration Date Visits Re quested Visits Authorized [id number] Closed 04/02/2024 1 1 Encounter Details Date Type Department Care Team (Late st Contact Info) Description 04/02/2024 Transcribed Order [facility] Pre-Service Department [address] [place] [address] Stephan Mota MD [address] [place], [place] [id number] Dysphagia, unspecified type (Primary Dx) Social History Tobacco Use Types Packs/Day Years Used Date Smoking Tobacco: Never Passive Smoke Exposure: Never Smokeless Tobacco: Former Quit: 2011 Alcohol Use Standard Drinks/Week Comments Yes 0 (1 standard drink = 0.6 oz pur e alcohol) occ PHQ-2 Answer Date Recorded PHQ-2 Score 0 03/18/2022 Sex and Gender Information Value Date Recorded Sex Assigned at Male 01/14/2023 1:26 PM EST Legal Sex Male 1:27 PM EDT Gender Identity Male 01/14/2023 1:26 PM EST Sexual Orientation Straight 01/14/2023 1: 26 PM EST documented as of this encounter Plan of Treatment Not on file documented as of this encounter Results * Speech Therapy - [facility] Modified Barium & Videofluroscopic Swallow (PAG, PAH,PFH, PHH, PNH, PNTH, PAR, PRH, PWH, PCH, PEM, PMM, PMH, IRVIN only (04/14/2024 10:17 AM EST) Narrative 04/14/2024 10:17 AM EST No dictation is required for radiology. Please refer to the speech pathologist report for details on the impressions and recommendations. Stephan Mota MD IMG FLUOROSCOPY ORDERABLES Fi nal Result documented in this encounter Visit Diagnoses Diagnosis Dysphagia, unspecified type- Primary Dysphagia, unspecified type documented in this encounter Additional Health Concerns Infection Onset Date Last Indicated Resolved Time R/O C. diff 08/17/2024 08/17/2024 08/18/2024 1:43 AM EDT documented as of this encounter Care Teams Commodity Director Relationship Specialty Start Date End Date Sharla Marrero MD PCP - General 05/02/21 documented as of this encounter
--- OUTSIDE RECORDS SUMMARY | 2024-12-13 12:19 | XMS_ITS | Encounter Summary ---
Author Organization [facility] Address [address] [place] [address] Care Team Providers Care Crayon Molding Machine Operator Name Role Phone Sharla Marrero MD Primary Care Provider [phone] Encounter Details Date Type Department Care Team (Late st Contact Info) Description 07/05/2021 Community Orders PCL LINK VIRTUAL DEPT [facility], [place] [address] [facility] [address] [place] [address] Malignant neoplasm of base of tongue (HC) (Primary Dx) Social History Tobacco Use Types Packs/Day Years Used Date Smoking Tobacco: Never Smokeless Tobacco: Former Quit: 2011 Alcohol Use Standard Drinks/Week Comments Yes 0 (1 standard drink = 0.6 oz pur e alcohol) occ Sex and Gender Information Value Date Recorded Sex Assigned at Male 01/14/2023 1:26 PM EST Legal Sex Male 1:27 PM EDT Gender Identity Male 01/14/2023 1:26 PM EST Sexual Orientation Straight 01/14/2023 1: 26 PM EST documented as of this encounter Plan of Treatment Not on file documented as of this encounter Visit Diagnoses Diagnosis Malignant neoplasm of base of tongue (HC)- Primary Malignant neoplasm of base of tongue documented in this encounter Additional Health Concerns Infection Onset Date Last Indicated Resolved Time R/O COVID-19 07/23/2021 07/23/2021 07/23/2021 5:44 PM EDT R/O Respiratory Infectious D iseases (Including COVID-19) 07/23/2021 07/23/2021 07/23/2021 5:44 PM EDT R/O C. diff 08/17/2024 08/17/2024 08/18/2024 1:43 AM EDT documented as of this encounter Care Teams Crayon Molding Machine Operator Relationship Specialty Start Date End Date Sharla Marrero MD PCP - General 05/02/21 documented as of this encounter
--- OUTSIDE RECORDS SUMMARY | 2024-12-13 12:19 | XMS_ITS | Encounter Summary ---
Author Organization [facility] Address [address] [place] [address] Care Team Providers Care Extern Name Role Phone Nopcp, Per Patient Primary Care Provider [phone] Sharla Marrero MD Primary Care Provider [phone] Encounter Details Date Type Department Care Team (Late st Contact Info) Description 04/23/2021 Lab Requisition [facility] [address] [place] [address] Douglas Gimenez MD [address] [place] [id number] Localized enlarged lymph nodes Social History Tobacco Use Types Packs/Day Years Used Date Smoking Tobacco: Never Smokeless Tobacco: Never Alcohol Use Standard Drinks/Week Comments Yes 0 (1 standard drink = 0.6 oz pur e alcohol) Sex and Gender Information Value Date Recorded Sex Assigned at Male 01/14/2023 1:26 PM EST Legal Sex Male 1:27 PM EDT Gender Identity Male 01/14/2023 1:26 PM EST Sexual Orientation Straight 01/14/2023 1: 26 PM EST COVID-19 Exposure Response Date Recorded In the last month, have you been in contact with someone who was confirmed or suspected to have Coronavirus / COVID-19? No / Unsure 04/19/2021 1:24 PM EST documented as of this encounter Plan of Treatment Not on file documented as of this encounter Procedures Procedure Name Priority Date/Time Associated Diagnosis Comments FINE NEEDLE ASPIRATION Routine 04/19/2021 2:41 PM EST Localized enlarged lymph nodes documented in this encounter Results * Fine Needle Aspiration (04/19/2021 2:41 PM EST) Case Report Medical Cytology Report Case: [id number] Authorizing Provider: Douglas Gimenez MD Collected: 04/19/2021 1441 Ordering Location: [facility] Received: 04/23/2021 0851 Laboratory Specimen: Neck, Left 04/24/2021 1:33 PM EST [facility], CLIA# [id number] Final Diagnosis A. Lymph node, level 3 left cervical, FNA: -Smears and ThinPrep: SUSPICIOUS FOR MALIGNANCY (specimen represented by rare markedly atypical squamous cells in a background of necroinflammatory debris) 04/24/2021 1:33 PM EST [facility], CLIA# [id number] at 1332 EST Clinical Information Left level 3 deep cervical lymph node 3 cm 04/24/2021 1:33 PM EST [facility], CLIA# [id number] Specimen Adequacy Scant cellularity 04/24/2021 1:33 PM EST [facility], CLIA# [id number] Interpretation SUSPICIOUS FOR MALIGNANCY. 04/24/2021 1:33 PM EST [facility], CLIA# [id number] at 1332 EST Microscopic Description Microscopic examination performed. All controls are appropriately reactive. This case is seen in intradepartmental review. 04/24/2021 1:33 PM EST [facility], CLIA# [id number] Gross Description Received are approximately 33 mL of clear fluid. One thinPrep filter is made. Additionally received are 3 prepared smears. 04/24/2021 1:33 PM EST [facility], CLIA# [id number] Embedded Images 1:33 PM [facility], CLIA# [id number] Aspirate (Neck, Left) 04/19/2021 2:41 PM EST 04/23/2021 8:51 AM EST us Douglas Gimenez MD PATHOLOGY/CYTOLOGY ORDERA BLES Final Result [facility], CLIA# [id number] [address] [place] [address] documented in this encounter Visit Diagnoses Diagnosis Localized enlarged lymph nodes documented in this encounter Additional Health Concerns Infection Onset Date Last Indicated Resolved Time R/O COVID-19 07/23/2021 07/23/2021 07/23/2021 5:44 PM EDT R/O Respiratory Infectious D iseases (Including COVID-19) 07/23/2021 07/23/2021 07/23/2021 5:44 PM EDT R/O C. diff 08/17/2024 08/17/2024 08/18/2024 1:43 AM EDT documented as of this encounter Care Teams Extern Relationship Specialty Start Date End Date Nopcp, Per Patient, PCP - General Family Medicine 10/30/16 05/01/21 Sharla Marrero MD PCP - General 05/02/21 documented as of this encounter
--- OUTSIDE RECORDS SUMMARY | 2024-12-13 12:19 | XMS_ITS | Patient Health Record ---
Author Organization [facility] Address [address] [place] [address] Care Team Providers Care Java Groovy Developer Name Role Phone Bharath Killian Primary Care Provider DARIEL Severino Unavailable [phone] Allergies No Known Allergies Reason For Referral Reason YING on CPAP but diana ins tired and wakes up in the middle of the night. Pt wonders if he needs CPAP fitted or redo sleep study 1st Call Diagnosis 1 Obstructive sleep ap yadi (adult) (pediatric) (G47.33) Referring Provider First Name Bharath Referring Provider Last Name Suzannejames De Jesusu Referred Organization [facility] Referred Provider DARIEL LOWRY [place]erred Address [address] [place] [place], Referred Provider Specialty Sleep Medici ne General Notes Khushbu Wan 08/2024 04:05:06 AM > called pt to schedule [facility] televisit appt but routed to [facility] to call us back. Referral Priority Routine Medications Medication SIG (Take, Route, Frequency, Duration) Notes Start Date End Date Status Sertraline HCl 50 MG Tablet 1 tablet Ora lly Once a day Active Jardiance 25 MG Tablet 1 tablet in the m orning Orally Once a day Active Levothyroxine Sodium 125 MCG Tablet 1 tablet in the morning on an empty stomach Orally Once a day Active Xarelto 20 MG Tablet 1 tablet with food Orally Once a day Active Atorvastatin Calcium 40 MG Tablet 1 tablet Orally Once a day Active Temazepam 30 MG Capsule 1 capsule at bed time as needed Orally Once a day Active clonazePAM Active Carvedilol 12.5 MG Tablet 1 tablet with food Orally Twice a day Active Problems Problem Type SNOMED Code ICD Code Onset Dates Problem Status W/U Status Risk Notes Problem Primary insomnia (5388293) Chronic Insomnia Disorder (F51.01) Active confirmed Problem Obstructive sleep apnea syndrome (disorder) (26336002) Obstructive sleep apnea (adult) (pediatric) (G47.33) Active confirmed Vital Signs Height 69 in 07/15/2024 Weight 180 lbs 07/15/2024 BMI 26.58 kg/m2 07/15/2024 Encounters Encounter Location Date Provider Diagnosis [address] [place] [id number] 07/15/2024 DARIEL LOWRY Obstructive sleep apnea (adult) (pediatric) G47.33 and Chronic Insomnia Disorder F51.01 [address] [place] [id number] 07/30/2024 DARIEL LOWRY Assessments Encounter Date Diagnosis (ICD Code) Assessment Notes Treatment Notes Treatment Clinical Notes Section Notes 07/15/2024 Chronic Insomnia Disorder (ICD-10 - F51.01) Move bedtime to 11:30PM Take melatonin 1 mg of melatonin 2 hts before bedtime. I would like to taper down temazepam and clonazepam and change to ambien, lunesta or zeleplon 07/15/2024 Obstructive sleep apnea (adult) (pediatric) (ICD-10 - G47.33) NURSE VISIT: For mask fitting Plan Of Treatment Pending Test Test Name Order Date CPAP download 07/15/2024 Insurance Providers Payer Name Payer Address Payer Phone Subscriber Number Group Number Insured Name Patient Relationship to Insured Coverage Start Date Coverage End Date [facility] [address] [place] [phone] [id number] Isaiah Cordova Self - patient is the insured Medical (General) History Medical History History ICD Code YING Chronic insomnia Neck cancer h/o quadruple bypass h/o left arm DVT
--- OUTSIDE RECORDS SUMMARY | 2024-12-13 12:19 | XMS_ITS | Encounter Summary ---
Author Organization [facility] Address [address] [place] [id number] Care Team Providers Care Automotive Consultant Name Role Phone Sharla Marrero MD Primary Care Provider [phone] Reason for Referral * Speech Therapy (Routine) - Closed Specialty Diagnoses / Procedures Referred By Contumm t Referred To Contact Speech-Language Pathologist / Central Scheduling Diagnoses Malignant neoplasm of base of tongue (HC) Encounter for palliative care Cachexia Insomnia, unspecified type Drug-induced polyneuropathy Neoplasm related pain (acute) (chronic) Julio Latif Jr., MD [address] [facility] [address] [place] [address] Phone: tel: fax: [facility] Pre Service Department [address] [place] [phone] Referral ID Status Reason Start Date Expiration Date V isits Requested Visits Authorized [id number] Closed Specialty Services Required 01/09/2023 01/09/2024 40 40 Scheduling Instructions PLEASE NOTE: The address listed above is for scheduling purposes ONLY! This will not be where your therapy appointments occur. STAT Encounter Details Date Type Department Care Team (Late st Contact Info) Description 01/09/2023 Transcribed Order [facility] Pre-Service Department [address] [place] [address] Julio Latif Jr., MD [address] [facility] [address] [place] [address] Malignant neoplasm of base of tongue (HC) (Primary Dx); Encounter for palliative care; Cachexia; Insomnia, unspecified type; Drug-induced polyneuropathy; Neoplasm related pain (acute) (chronic) Social History Tobacco Use Types Packs/Day Years [...] as of this encounter Plan of Treatment Scheduled Referrals Name Type Priority Associated Diagnoses Orde r Schedule Amb referral to Speech Lang Pathology Eval&Tx Outpatient Referral Routine Malignant neoplasm of base of tongue (HC) Encounter for palliative care Cachexia Insomnia, unspecified type Drug-induced polyneuropathy Neoplasm related pain (acute) (chronic) Ordered: 01/09/2023 documented as of this encounter Visit Diagnoses Diagnosis Malignant neoplasm of base of tongue (HC)- Primary Malignant neoplasm of base of tongue Encounter for palliative care Cachexia Insomnia, unspecified type 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 diff 08/17/2024 08/17/2024 08/18/2024 1:43 AM EDT documented as of this encounter Care Teams Automotive Consultant Relationship Specialty Start Date End Date Sharla Marrero MD PCP - General 05/02/21 documented as of this encounter
--- OUTSIDE RECORDS SUMMARY | 2024-12-13 12:19 | XMS_ITS | Clinical Summary ---
Author Organization [facility] Address [address] [place] [id number] Care Team Providers Care Healthcare Administrative Assistant Name Role Phone Sharla Marrero MD Primary Care Provider [phone] Allergies No known active allergies Medications JARDIANCE 25 mg tablet Take 1 tablet by mouth in the morning. Via G tube. 2 Active atorvaSTATin (LIPITOR) 40 mg tablet Administer 1 tablet by G-tube route in the morning. 2 Active amLODIPine (NORVASC) 10 mg tablet Take 10 mg by mouth in the morning. 2 Active levothyroxine 200 MCG Oral tablet Administer 1 tablet by G-tube route in the morning. Active temazepam (RESTORIL) 30 mg capsule 1 capsule nightly. Via G Tube Active carvediloL (COREG) 3.125 MG tablet Administer 1 tablet by G-tube route in the morning and 1 tablet in the evening. Administer with meals. Active rivaroxaban (XARELTO) 20 mg Tab Administer 1 tablet by G-tube route in the morning. Active diphenoxylate-a tropine (LOMOTIL) 2.5-0.025 mg per tablet Take 1 tablet by mouth 4 (four) times daily as needed for Diarrhea. Active loperamide (IMODIUM) 2 mg capsule Take 1 capsule by mouth 4 (four) times daily as needed for Diarrhea. Active scopolamine (TRANSDERM-SCOP ) 1.5 (Delivering 1mg over 3 days) Place 1 patch onto the skin every third day. Active ondansetron (ZOFRAN) 4 mg/5 mL oral solution Administer 5 mLs by G-tube route 3 (three) times daily as needed for Nausea. Active linaCLOtide (LINZESS) 72 mcg Cap capsule Take 1 capsule by mouth daily as needed. constipation Active sertraline (ZOLOFT) 50 MG tablet Administer 1 tablet by G-tube route in the morning. Active pembrolizumab (KEYTRUDA IV) Inject into the vein every 21 days. Active UNABLE TO FINDIndications :for pain Administer 1-2 vials by G-tube route nightly. 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 05/17/2022 Overview (05/17/2022): Added automatically from request for surgery [id number] Dysphagia 11/12/2021 Overview (11/12/2021): Added automatically from request for surgery [id number] Muscle cramps 08/10/2021 Hyponatremia 08/10/2021 Type 2 diabetes mellitus wit h hyperglycemia, with long-term current use of insulin 08/10/2021 Malignant neoplasm of base of tongue 06/04/2021 Resolved Problems Problem Noted Date Diagnosed Date Resolved Date Hypomagnesemia 08/10/2021 08/11/2021 Metabolic acidosis 08/10/2021 2 Encounters Date Type Department Care Team Description 11/27/2024 12:06 AM EDT - 11/27/2024 2:35 AM EDT Emergency [facility] [address] [place] [phone] Francisco Kaminski DO Gastrostomy tube dysfunction (HC) (Primary Dx) Discharge Disposition: Home or Self Care 11/27/2024 Travel 11/08/2024 2:00 PM EDT - 11/08/2024 4:17 PM EDT Emergency [facility] Department [address] [place] [phone] Kieran Ernst MD Laceration of left lower extremity, initial encounter (Primary Dx) Discharge Disposition: Home or Self Care 11/08/2024 Travel 10/07/2024 2:57 PM EDT - 10/07/2024 11:59 PM EDT Hospital Encounter [facility] [address] [place] [address] Julio Latif Jr., MD Malignant neoplasm of base of tongue (HC) Discharge Disposition: Home or Self Care 10/07/2024 Transcribed Order [facility] Pre Service Department [address] [place] [phone] Julio Latif Jr., MD Malignant neoplasm of base of tongue (HC) (Primary Dx) from Last 3 Months Immunizations Immunization Administration Dates Next Due Tdap ([id number]=[id number]) 11/08/2024 Family History Medical History Relation Name Comments Heart attack Father Lung cancer Mother Rashes / Skin problems Neg Hx Relation Name Status Comments Father Mother Social History Tobacco Use Types Packs/Day Years Used Date Smoking Tobacco: Never Passive Smoke Exposure: Never Smokeless Tobacco: Former Quit: 2011 Tobacco Cessation:Counseling Given: No Alcohol Use Standard Drinks/Week Comments Yes 0 (1 standard drink = 0.6 oz pur e alcohol) [facility] Utilities Answer Date Recorded In the past 12 months has e electric, gas, oil, or water [employer] threatened to shut off services in your home? No 08/17/2024 Humiliation, Afraid, Rape, and Kick questionnair e Answer Date Recorded Within the last year, have y ou been afraid of your partner or ex-partner? No 08/16/2024 Within the last year, have y ou been humiliated or emotionally abused in other ways by your partner or ex-partner? No Within the last year, have y ou been kicked, hit, slapped, or otherwise physically hurt by your partner or ex-partner? No 08/16/2024 Within the last year, have y ou been raped or forced to have any kind of sexual activity by your partner or ex-partner? No 08/16/2024 AUDIT-C Answer Date Recorded Q1: How often do you have a drink containing alc ohol? 2-4 times a month 08/16/2024 Q2: How many drinks containi ng alcohol do you have on a typical day when you are drinking? 5 or 6 08/16/2024 Q3: How often do you have si x or more drinks on one occasion? Weekly 08/16/2024 Overall Financial Resource Strain (CARDIA) Answe r Date Recorded How hard is it for you to pa y for the very basics like food, housing, medical care, and heating? Not hard at all 08/17/2024 PHQ-2 Answer Date Recorded PHQ-2 Score 0 03/18/2022 [facility] - Occupational Stress Questionnaire Answer Date Recorded Do you feel stress - tense, restless, nervous, or anxious, or unable to sleep at night because your mind is troubled all the time - these days? Not at all 08/17/2024 Hunger Vital Sign Answer Date Recorded Within the past 12 months, y ou worried that your food would run out before you got the money to buy more. Never true 08/18/19 25 Within the past 12 months, t he food you bought just didn't last and you didn't have money to get more. Never true 08/17/2024 PRAPARE - Transportation Answer Date Re corded In the past 12 months, has l ack of transportation kept you from medical appointments or from getting medications? No 08/01 In the past 12 months, has l ack of transportation kept you from meetings, work, or from getting things needed for daily living? No 08/17/2024 Housing Stability Vital Sign Answer López e Recorded In the last 12 months, was t here a time when you were not able to pay the mortgage or rent on time? No 08/17/2024 In the past 12 months, how m any times have you moved where you were living? 0 08/17/2024 At any time in the past 12 m [place], were you homeless or living in a [place] (including now)? No 08/17/2024 Sex and Gender Information Value Date Recorded Sex Assigned at Male 01/14/2023 1:26 PM EST Legal Sex Male 1:27 PM EDT Gender Identity Male 01/14/2023 1:26 PM EST Sexual Orientation Straight 01/14/2023 1: 26 PM EST Last Filed Vital Signs Vital Sign Reading Time Taken Comments Blood Pressure 166/89 11/27/2024 12:05 AM EDT Pulse 67 11/27/2024 12:05 AM EDT Temperature 37.2 C (98.9 F) 11/27/2024 12:05 AM EDT Respiratory Rate 18 11/27/2024 12:0 5 AM EDT Oxygen Saturation 98% 11/27/2024 12: 05 AM EDT Inhaled Oxygen Concentration - - Weight 84.7 kg (186 lb 11.7 oz) 025 12:05 AM EDT Height 172.7 cm (5' 8) 11/08/2024 2:01 PM EDT Body Mass Index 28.39 11/08/2024 2:01 PM EDT Plan of Treatment Health Maintenance Due Date Last Done Comments CT Colonography 1960 Cologuard (FIT-DNA every 3 years) 1960 Colonoscopy 1960 Colorectal Cancer Screening 1960 DIABETES Nephropathy Screeni ng Microalbumin 1960 FOBT/iFOBT (every 1 year) 1960 Hepatitis C Screening 1960 Sigmoidoscopy 1960 Pneumococcal Vaccine 50+ yea rs (1 of 2 - PCV) 1981 Shingles Vaccine (1 of 2) 2012 DIABETES Foot Exam 10/30/2016 DIABETES Retinal Dilated Eye Exam 10/30/2016 DIABETES Hemoglobin A1c 02/09/2022 08/10/2021 Influenza Vaccine (#1) 2024 01/20/2020 COVID-19 Vaccine (2 - 2024-2 6 season) 2024 06/10/2020 Medicare Initial AWV [id number] 11/01/2024 TdaP/Td Vaccine (2 - Td or Tdap) 11/08/2034 11/09/19 25 Hepatitis A Vaccine Aged Out No longe r eligible based on patient's age to complete this topic Meningococcal ACWY Vaccine Aged Out N o longer eligible based on patient's age to complete this topic Procedures Procedure Name Priority Date/Time Associated Diagnosis Comments FEEDING TUBE REPLACEMENT Routine 11/27/2024 5:27 AM EDT XR ABDOMEN AP STAT 11/27/2024 2:10 AM EDT LACERATION REPAIR Routine 11/08/2024 3:[address] CHEST W CONTRAST STAT 10/07/2024 3 :25 PM EDT Malignant neoplasm of base of tongue (HC) I-STAT CREATININE RAD PATIENTS Routine 10/07/2024 3:18 PM EDT HEMOGLOBIN A1C Add-On 08/10/2021 12:04 PM EDT from Last 3 Months or Most Recently Relevant to Health Maintenance Results * Feeding Tube (11/27/2024 5:27 AM EDT) Francisco Cronin DO - 11/27/2024 5:27 AM EDT Francisco Kaminski DO 11/27/2024 5:28 AM Feeding Tube Date/Time: 11/27/2024 5:27 AM Performed by: Francisco Kaminski DO Authorized by: Francisco Kaminski DO Consent: Consent obtained: Verbal Consent given by: Patient Risks, benefits, and alternatives were discussed: yes Risks discussed: Bleeding, infection and pain Alternatives discussed: No treatment Ragland protocol: Procedure explained and questions answered to patient or proxy's satisfaction: yes Relevant documents present and verified: yes Patient identity confirmed: Verbally with patient Pre-procedure details: Old tube type: Gastrostomy Old tube size: 24 Fr Sedation: Sedation type: None Anesthesia: Anesthesia method: None Procedure details: Patient position: Supine Procedure type: Replacement Tube type: Gastrostomy Tube size: 24 Fr Bulb inflation volume: 9 Bulb inflation fluid: Normal saline Post-procedure details: Placement/position confirmation: Auscultation, contrast, gastric contents aspirated and x-ray Placement difficulty: None Bleeding: Minimal Procedure completion: Tolerated well, no immediate complications Francisco Kaminski DO PROCEDURE/MINOR S URGICAL ORDERABLES Final Result * XR G-tube confirmation (11/27/2024 2:10 AM EDT) Anatomical Region Laterality Modality Abdomen, Spine Digital Radiogra phy 11/27/2024 8:39 AM EDT Impressions 11/27/2024 8:36 AM EDT Percutaneous gastrostomy tube overlies the epigastric region. Post Gastrografin images show contrast within the stomach and duodenum. No definite extravasation, although evaluation is limited on the 2 static submitted images only in AP position. Electronically Signed By: Jayna San MD 11/27/2024 8:36 AM [id number] [facility] 11/27/2024 8:36 AM EDT XR ABDOMEN AP TECHNIQUE: Portable AP radiograph of the abdomen. CLINICAL INDICATION: G-tube confirmation gastrograffin. COMPARISON: None available. FINDINGS: Percutaneous gastrostomy tube overlies the epigastric region. Post Gastrografin images show contrast within the stomach and duodenum. No definite extravasation, although evaluation is limited on the 2 static submitted images only in AP position. Procedure Note Jayna San MD - 11/27/2024 XR ABDOMEN AP TECHNIQUE: Portable AP radiograph of the abdomen. CLINICAL INDICATION: G-tube confirmation gastrograffin. COMPARISON: None available. FINDINGS: Percutaneous gastrostomy tube overlies the epigastric region. Post Gastrografin images show contrast within the stomach and duodenum. No definite extravasation, although evaluation is limited on the 2 static submitted images only in AP position. IMPRESSION: Percutaneous gastrostomy tube overlies the epigastric region. Post Gastrografin images show contrast within the stomach and duodenum. No definite extravasation, although evaluation is limited on the 2 static submitted images only in AP position. Electronically Signed By: Jayna San MD 11/27/2024 8:36 AM [id number] Francisco Kaminski DO IMG DIAGNOSTIC IM AGING ORDERABLES Final Result * Laceration repair (11/08/2024 3:53 PM EDT) Narrative Marie Crespo PA - 11/08/2024 3:53 PM EDT ABDIAS Tran 11/08/2024 3:57 PM Laceration repair Date/Time: 11/08/2024 3:53 PM Performed by: ABDIAS Tran Authorized by: Kieran Ernst MD Consent: Consent obtained: Verbal Consent given by: Patient Risks discussed: Infection, pain and retained foreign body Ragland protocol: Patient identity confirmed: Verbally with patient Anesthesia: Anesthesia method: Local infiltration Local anesthetic: Lidocaine 1% WITH epi Laceration details: Location: Leg Leg location: L lower leg Exploration: Hemostasis achieved with: Direct pressure Treatment: Area cleansed with: Saline Amount of cleaning: Extensive Irrigation solution: Sterile saline Irrigation method: Syringe Skin repair: Repair method: Sutures Suture technique: Simple interrupted Number of sutures: 16 Post-procedure details: Procedure completion: Tolerated well, no immediate complications Kieran Ernst MD PROCEDURE/MINOR SURGICAL ORDER JUAN MIGUEL Final Result * CT chest with contrast (10/07/2024 3:25 PM EDT) Anatomical Region Laterality Modality Chest, Spine Computed Tomogra phy 10/07/2024 3:47 PM EDT Impressions 10/07/2024 3:44 PM EDT 1. Significant improvement in bilateral multifocal airspace opacities seen on previous exam. Mild groundglass opacities in the right middle lobe and lingula may be residual from previous exam or may represent a new infectious/inflammatory process. 2. New mucous plugging with tree-in-bud nodularity in the left lower lobe, likely infectious/inflammatory. 3. Stable enlarged precarinal lymph node. 4. Unchanged ascending thoracic aortic aneurysm measuring 4.5 cm. [facility] Workstation ID: [id number] Albright 10/07/2024 3:44 PM EDT Patient Name: ISAIAH CORDOVA : 1960 Ordering Provider: JULIO LATIF JR Date of Study: 10/07/2024 2:[address] CHEST W CONTRAST TECHNIQUE: CT images through the chest were obtained with intravenous contrast. Contrast was injected without complications. Dose reduction techniques were utilized for this examination. CLINICAL INDICATION: C01;Malignant neoplasm of base of tongue (HC). COMPARISON: CT chest 08/17/2024 FINDINGS: Mediastinum: A right chest port terminates in the SVC. Normal heart size. No pericardial effusion. Ascending thoracic aortic aneurysm measuring 4.5 cm. Postsurgical changes of CABG. The visualized thyroid is unremarkable. Lymph nodes: Stable enlarged precarinal lymph node measuring 1.4 cm in short axis Airways: Central airways are patent. Lungs/Pleura: Significant improvement in bilateral multifocal airspace opacities seen on previous exam. Mild groundglass opacities in the right middle lobe and lingula, which may be residual from previous exam or new. Stable postsurgical changes and scarring in the right lower lobe. There is new mucous plugging with tree-in-bud nodularity in the left lower lobe. Upper abdomen: PEG tube in place. Bones and soft tissues: Degenerative changes of the spine. Median sternotomy. Procedure Note Patsy Brown MD - 10/07/2024 Patient Name: ISAIAH CORDOVA : 1960 Ordering Provider: JULIO LATIF JR Date of Study: 10/07/2024 2:[address] CHEST W CONTRAST TECHNIQUE: CT images through the chest were obtained with intravenous contrast. Contrast was injected without complications. Dose reduction techniques were utilized for this examination. CLINICAL INDICATION: C01;Malignant neoplasm of base of tongue (HC). COMPARISON: CT chest 08/17/2024 FINDINGS: Mediastinum: A right chest port terminates in the SVC. Normal heart size. No pericardial effusion. Ascending thoracic aortic aneurysm measuring 4.5 cm. Postsurgical changes of CABG. The visualized thyroid is unremarkable. Lymph nodes: Stable enlarged precarinal lymph node measuring 1.4 cm in short axis Airways: Central airways are patent. Lungs/Pleura: Significant improvement in bilateral multifocal airspace opacities seen on previous exam. Mild groundglass opacities in the right middle lobe and lingula, which may be residual from previous exam or new. Stable postsurgical changes and scarring in the right lower lobe. There is new mucous plugging with tree-in-bud nodularity in the left lower lobe. Upper abdomen: PEG tube in place. Bones and soft tissues: Degenerative changes of the spine. Median sternotomy. IMPRESSION: 1. Significant improvement in bilateral multifocal airspace opacities seen on previous exam. Mild groundglass opacities in the right middle lobe and lingula may be residual from previous exam or may represent a new infectious/inflammatory process. 2. New mucous plugging with tree-in-bud nodularity in the left lower lobe, likely infectious/inflammatory. 3. Stable enlarged precarinal lymph node. 4. Unchanged ascending thoracic aortic aneurysm measuring 4.5 cm. [facility] Workstation ID: [id number] us Julio Latif Jr., MD [facility] ORDERABLES Fi nal Result * I-stat creatinine rad patients (10/07/2024 3:18 PM EDT) [facility] POC Creatinine 0.80 0.70 - 1.30 mg/dL 10/07/2024 3:[address] [facility], CLIA# [id number] Sample Type POC VENOUS 3:[address] [facility], CLIA# [id number] POC GFR CKD-EPI >60 >60 mL/min/1.7 3 sq m mL/min/1.7 3sq m 10/07/2024 3:[address] [facility], CLIA# [id number] Comment:Effective 11/07/2021 - A single eGFR result will be reported using a new equation that removes the race-based coefficient found in prior equations. Use of a race-neutral calculation is recommended by the [employer]. Blood 10/07/2024 3:18 PM EDT 10/07/2024 3:19 PM EDT us Julio Latif Jr., MD POINT OF CARE TEST O RDERABLES Final Result [facility], CLIA# [id number] [facility] [place] [id number] * (ABNORMAL) Hemoglobin A1c (08/10/2021 12:04 PM EDT) [facility] Hemoglobin A1C 10.2(H) 3.8 - 5.6 % 08/10/2021 1:29 PM EDT [facility] Estimated Average Glucose (MG/DL) 246 mg/dL 08/10/2021 1:29 PM EDT [facility] Estimated Average Glucose (Mmol/L) 14 mmol/L 08/10/2021 1:29 PM EDT [facility] Blood (Blood, Venous) Venipuncture / Unknown 08/10/2021 12:04 PM EDT 08/10/2021 12:08 PM EDT Mando Kim MD LAB BLOOD ORDERABLES Final Res ult [facility] [address] [place], [place] [id number] from Last 3 Months or Most Recently Relevant to Health Maintenance Insurance [employer]r MEDICARE Owlr Advance Directives Documents on File Type Date Recorded 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
--- OUTSIDE RECORDS SUMMARY | 2024-12-13 12:19 | XMS_ITS ---
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 Past Treatment and Therapy Plans No past plan information found. Lifetime Dose Tracking * Chemical Lifetime Dose Automatic Entry Manual Entr y Radiation - Minutes of Fluoroscopy 15.5 minutes of Fluoroscopy 15.5 minutes of Fluoroscopy 0 minutes of Fluoroscopy Radiation - lupillo Curies 88.8 mCi 88.8 mCi 0 mCi Radiation - DLP (mGy.cm) 8,745.5 DLP (mGy.cm) 8,745.5 DLP (mGy.cm) 0 DLP (mGy.cm) Radiation - milliGray 9,678.47 mGy 9,678.47 mGy 0 mGy Resolved Problems Problem Noted Date Diagnosed Date Resolved Date Hypomagnesemia 08/10/2021 08/11/2021 Metabolic acidosis 08/10/2021 2
--- OUTSIDE RECORDS SUMMARY | 2024-12-13 12:19 | XMS_ITS | Encounter Summary ---
Author Organization [facility] Address [address] [place] [address] Care Team Providers Care New Order Clerk Name Role Phone Sharla Marrero MD Primary Care Provider Reason for Referral * Ultrasound (Emergency) - Closed Specialty Diagnoses / Procedures Referred By Contac t Referred To Contact Central Scheduling Diagnoses Malignant neoplasm of base of tongue (HC) Chronic left shoulder pain Procedures Ultrasound doppler venous arm left Julio Latif Jr., MD [address] [place] [address] Phone: tel: fax: [facility] Pre Service Department [address] [place] [address] Phone: tel: Referral ID Status Reason Start Date Expiration Date Visits Re quested Visits Authorized [id number] Closed 08/28/2021 1 1 Encounter Details Date Type Department Care Team (Late st Contact Info) Description 08/28/2021 Community Orders [facility] DEPT Julio Latif Jr., MD [address] [place] [address] Malignant neoplasm of base of tongue (HC) (Primary Dx); Chronic left shoulder pain Social History Tobacco Use Types Packs/Day Years [...] have Coronavirus / COVID-19? No / Unsure 08/28/2021 6:16 PM EDT documented as of this encounter Plan of Treatment Not on file documented as of this encounter Results * Ultrasound doppler venous arm left (08/28/2021 7:03 PM EDT) Anatomical Region Laterality Modality Arm, Vascular Left Ultrasound 08/28/2021 7:11 PM EDT Impressions 08/28/2021 7:08 PM EDT Deep venous thrombosis in the left brachial vein. An orange report finding communication alert was initiated in [employer] for the ordering provider/physician at the time of image interpretation. Approved By: Kobi Marion 08/28/2021 7:08 PM VIK Albright 08/28/2021 7:08 PM EDT EXAM: US DOPPLER VENOUS ARM LEFT CLINICAL INDICATION: PAIN IN LEFT SHOULDER;Malignant neoplasm of base of tongue (HC);Pain in left shoulder;Other chronic pain. TECHNIQUE: Vargas scale, color and spectral Doppler imaging of the deep venous system the left upper extremity was performed.? COMPARISON: None FINDINGS: Internal Jugular Vein: Normal. Subclavian Vein: Normal. Axillary Vein: Normal. Brachial Veins: Deep venous thrombosis. Basilic Vein: Normal. Cephalic Vein: Normal. Infra-antecubital veins: Normal where imaged. Soft Tissues: Normal. Procedure Note Kobi Mraion MD - 08/28/2021 EXAM: US DOPPLER VENOUS ARM LEFT CLINICAL INDICATION: PAIN IN LEFT SHOULDER;Malignant neoplasm of base of tongue (HC);Pain in left shoulder;Other chronic pain. TECHNIQUE: Vargas scale, color and spectral Doppler imaging of the deep venous system the left upper extremity was performed.? COMPARISON: None FINDINGS: Internal Jugular Vein: Normal. Subclavian Vein: Normal. Axillary Vein: Normal. Brachial Veins: Deep venous thrombosis. Basilic Vein: Normal. Cephalic Vein: Normal. Infra-antecubital veins: Normal where imaged. Soft Tissues: Normal. IMPRESSION: Deep venous thrombosis in the left brachial vein. An orange report finding communication alert was initiated in [facility] for the ordering provider/physician at the time of image interpretation. Approved By: Kobi Marion 08/28/2021 7:08 PM VIK Julio Latif Jr., MD [facility] ORDERABLES Fi nal Result documented in this encounter Visit Diagnoses Diagnosis Malignant neoplasm of base of tongue (HC)- Primary Malignant neoplasm of base of tongue Chronic left shoulder pain Pain in joint, shoulder region Malignant neoplasm of base of tongue (HC) Malignant neoplasm of base of tongue Chronic left shoulder pain Pain in joint, shoulder region documented in this encounter Additional Health Concerns Infection Onset Date Last Indicated Resolved Time R/O C. diff 08/17/2024 08/17/2024 08/18/2024 1:43 AM EDT documented as of this encounter Care Teams New Order Clerk Relationship Specialty Start Date End Date Sharla Marrero MD PCP - General 05/02/21 documented as of this encounter
--- OUTSIDE RECORDS SUMMARY | 2024-12-13 12:19 | XMS_ITS | Clinical Summary ---
Author Organization [facility] Address [address] [place] [address] Care Team Providers Care Edging Machine Operator Name Role Phone No, Pcp MD Primary Care Provider Unavailabl e Allergies No known active allergies Medications acetaminophen (TYLENOL) 325 MG tablet Take 1 tablet (325 mg total) by mouth every 6 (six) hours as needed for pain Active aspirin 81 MG tablet, delayed release Take 1 tablet (81 mg total) by mouth daily Active atorvastatin (LIPITOR) 20 MG tablet Take 1 tablet (20 mg total) by mouth daily Active atorvastatin (LIPITOR) 40 MG tablet Take 1 tablet (40 mg total) by mouth daily Active carvediloL (COREG) 3.125 MG tablet Take 1 tablet (3.125 mg total) by mouth 2 (two) times a day with meals Active cephalexin (KEFLEX) 500 MG capsule Take 1 capsule (500 mg total) by mouth 4 (four) times a day Active chlorhexidine (PERIDEX) 0.12 % solution Use as directed 15 mL in the mouth or throat 2 (two) times a day Active docusate (COLACE) 60 mg/15 mL syrup Take 15 mL (60 mg total) by mouth daily Active dulaglutide 3 mg/0.5 mL PnIj subcutaneous pen Inject 0.5 mL (3 mg total) under the skin every 7 (seven) days Active empagliflozin-pancho agliptin 25-5 mg Tab Take by mouth daily Active gabapentin (NEURONTIN) 300 MG capsule Take 1 capsule (300 mg total) by mouth 3 (three) times a day Active glipiZIDE (GLUCOTROL) 5 MG tablet Take 1 tablet (5 mg total) by mouth 2 (two) times a day before meals Active levothyroxine (SYNTHROID) 150 MCG tablet Take 1 tablet (150 mcg total) by mouth daily 1 (one) hour before breakfast Active losartan (COZAAR) 25 MG tablet Take 1 tablet (25 mg total) by mouth daily Active magnesium aspart,citrate,ox soren 400 mg magnesium Cap Take by mouth Ac tive metFORMIN (GLUCOPHAGE) 1000 MG tablet Take 1 tablet (1,000 mg total) by mouth 2 (two) times a day Active oxyCODONE-acetami nophen (PERCOCET) 5-325 mg per tablet Take 1 tablet by mouth every 4 (four) hours as needed for pain Active pantoprazole (PROTONIX) 40 MG tablet, delayed release Take 1 tablet (40 mg total) by mouth daily Active rivaroxaban (XARELTO) 20 mg Tab Take 1 tablet (20 mg total) by mouth daily Active temazepam (RESTORIL) 30 mg capsule Take 1 capsule (30 mg total) by mouth nightly as needed for sleep Active Jardiance 25 mg tablet Take 1 tablet (25 mg total) by mouth daily Active Immunizations Immunization Administration Dates Next Due MMR 10/12/1980 Measles 09/27/1966 Family History Medical History Relation Name Comments Heart attack Father Cancer Mother Relation Name Status Comments Father Mother Social History Tobacco Use Types Packs/Day Years Used Date Smoking Tobacco: Never Smokeless Tobacco: Never Tobacco Cessation:Counseling Given: Not Answered Alcohol Use Standard Drinks/Week Comments Yes 0 (1 standard drink = 0.6 oz pur e alcohol) Sex and Gender Information Value Date Recorded Sex Assigned at Not on file Legal Sex Male 1:48 PM EDT Gender Identity Not on file Sexual Orientation Not on file Last Filed Vital Signs Vital Sign Reading Time Taken Comments Blood Pressure 113/69 01/20/2024 11:53 AM EST Pulse 63 01/20/2024 11:53 AM EST Temperature 36.4 C (97.6 F) 01/20/2024 11:53 AM EST Respiratory Rate 20 01/20/2024 11:53 AM EST Oxygen Saturation 100% 01/20/2024 11:53 AM EST Inhaled Oxygen Concentration - - Weight 85.8 kg (189 lb 2.5 oz) 01/20/2024 11:53 AM EST Height 175.3 cm (5' 9) 01/20/2024 11:53 AM EST Body Mass Index 27.93 01/20/2024 11:53 AM EST Plan of Treatment Health Maintenance Due Date Last Done Comments CT Colonography 1962 Colonoscopy 1962 Colorectal Screening 1962 FIT-DNA 1962 FIT 1962 FOBT 1962 HIV SCREENING 1962 HIV Screening Every 1 Year 1962 HIV Screening Once 1962 Hepatitis C Screening 1962 Sigmoidoscopy 1962 COVID-19 Vaccine (1 of 4) 1974 DTAP/TDAP/TD (1 - Tdap) 1981 Shingrix (1 of 2) 2012 Influenza vaccine (#1) 2024 01/20/2020 HEPATITIS B VACCINES Aged Out No long er eligible based on patient's age to complete this topic Meningococcal B Aged Out No longer el igible based on patient's age to complete this topic Pneumococcal Vaccine: 0 to 6 4 Years Aged Out No longer eligible b ased on patient's age to complete [place] [address] [place] [address] AC POS HMO Care Teams Edging Machine Operator Relationship Specialty Start Date End Date No, PcpMD PCP - General 01/11/24
--- OUTSIDE RECORDS SUMMARY | 2024-12-13 12:19 | XMS_ITS | Encounter Summary ---
Author Organization [facility] Address [address] [place] [address] Care Team Providers Care Accounts Payable Assistant Name Role Phone Sharla Marrero MD Primary Care Provider Reason for Referral * Physical Medicine (Emergency) - Canceled Specialty Diagnoses / Procedures Referred By Contac t Referred To Contact Physical Therapist / Central Scheduling Diagnoses Malignant neoplasm of base of tongue (HC) Julio Latif Jr., MD [address] [facility] [address] [place] [address] Phone: tel: fax: [facility] Pre Service Department [address] [place] [address] Referral ID Status Reason Start Date Expiration Date Visits Requested Visits Authorized [id number] Canceled Specialty Services Required 05/23/2021 1 1 Scheduling Instructions PLEASE NOTE: The address listed above is for scheduling purposes ONLY! This will not be where your therapy appointments occur. Encounter Details Date Type Department Care Team (Late st Contact Info) Description 05/23/2021 Transcribed Order [facility] Physical Therapy [address] [place] [address] Julio Latif Jr., MD [address] [place] [address] Malignant neoplasm of base of [...] have Coronavirus / COVID-19? No / Unsure 05/17/2021 10:44 AM EDT documented as of this encounter Plan of Treatment Scheduled Referrals Name Type Priority Associated Diagnoses Order Schedule Ambulatory referral to Physical Therapy Outpatient Referral STAT Malignant neoplasm of base of tongue (HC) Ordered: 05/23/2021 documented as of this encounter Visit Diagnoses [...] documented as of this encounter Care Teams Accounts Payable Assistant Relationship Specialty Start Date End Date Sharla Marrero MD PCP - General 05/02/21 documented as of this encounter
--- OUTSIDE RECORDS SUMMARY | 2024-12-13 12:19 | XMS_ITS | Encounter Summary ---
Author Organization [facility] Address [address] [place] [address] Care Team Providers Care Laundry Tub Maker Name Role Phone Sharla Marrero MD Primary Care Provider [phone] Reason for Referral * Pet Scan (Routine) - Closed Specialty Diagnoses / Procedures Referred By Contac t Referred To Contact Diagnoses Malignant neoplasm of base of tongue (HC) Procedures PET CT tumor skull to thigh Julio Latif Jr., MD [address] [facility] [address] [place] [address] Phone: tel: fax: [facility] Pre Service Department [address] [place] [address] Referral ID Status Reason Start Date Expiration Date Visits Re quested Visits Authorized [id number] Closed 10/24/2021 11/22/2021 1 1 Encounter Details Date Type Department Care Team (Late st Contact Info) Description 10/23/2021 Transcribed Order [facility] Pre Service Department [address] [place] [address]. [place] [address] Julio Latif Jr., MD [address] [place] [address] Malignant neoplasm of base of [...] Exposure Response Date Recorded In the last 10 days, have yo u been in contact with someone who was confirmed or suspected to have Coronavirus/COVID-19? No / Unsure 10/25/2021 2:22 PM EDT documented as of this encounter Plan of Treatment Not on file documented as of this encounter Results * PET CT tumor skull to thigh (11/02/2021 11:25 AM EDT) Anatomical Region Laterality Modality Positron Emissio n Tomography (PET) 11/02/2021 1:02 PM EDT Impressions 11/02/2021 12:59 PM EDT 1. Interval resolution of the PET avid left base of tongue mass and the left-sided internal jugular adenopathy. No residual and/or new areas of elevated SUV activity in the neck suggestive of residual or metastatic disease. 2. No findings of metastatic disease in the chest, abdomen, and pelvis. All CT scans at this facility use iterative reconstruction technique, dose modulation and/or weight based dosing when appropriate to reduce radiation dose to as low as reasonably achievable. Approved By: Mor Ruiz MD 11/02/2021 12:59 PM [id number] Narrative 11/02/2021 12:59 PM EDT PET/CT examination Indication: Base of tongue cancer. Subsequent PET. Procedure: A fused CT PET scan was performed from the skull vertex to the thighs after IV administration of 11.54 mCi of F.-18 FDG through the right antecubital IV. Axial images were acquired. Sagittal and coronal reconstructed images were obtained. The patient's blood glucose was 119mg/dL prior to the procedure. Comparison: PET/CT from 05/17/2021. . Findings: Baseline SUV activity within the liver is 3.8 and the mediastinal blood pool is 2.4. The intracranial contents are unremarkable. There is interval resolution of the previous PET avid left base of tongue mass. The PET avid left internal jugular adenopathy has also resolved. No suspicious areas of elevated SUV activity in the nasopharynx, oropharynx, oral cavity, and larynx. There is mild mucosal edema within the oropharynx compatible with postradiation changes. No PET avid adenopathy in the neck. No PET avid pulmonary nodule or mass. No PET avid mediastinal, hilar, or axillary adenopathy. No suspicious areas of elevated SUV activity in the liver, spleen, adrenals, pancreas, and kidneys. There is a PEG tube in the stomach in expected position. No PET avid adenopathy in the abdomen or pelvis. No suspicious areas of elevated SUV activity within the spine or the imaged osseous structures. Procedure Note Mor Ruiz MD - 11/02/2021 PET/CT examination Indication: Base of tongue cancer. Subsequent PET. Procedure: A fused CT PET scan was performed from the skull vertex to the thighs after IV administration of 11.54 mCi of F.-18 FDG through the right antecubital IV. Axial images were acquired. Sagittal and coronal reconstructed images were obtained. The patient's blood glucose was 119mg/dL prior to the procedure. Comparison: PET/CT from 05/17/2021. . Findings: Baseline SUV activity within the liver is 3.8 and the mediastinal blood pool is 2.4. The intracranial contents are unremarkable. There is interval resolution of the previous PET avid left base of tongue mass. The PET avid left internal jugular adenopathy has also resolved. No suspicious areas of elevated SUV activity in the nasopharynx, oropharynx, oral cavity, and larynx. There is mild mucosal edema within the oropharynx compatible with postradiation changes. No PET avid adenopathy in the neck. No PET avid pulmonary nodule or mass. No PET avid mediastinal, hilar, or axillary adenopathy. No suspicious areas of elevated SUV activity in the liver, spleen, adrenals, pancreas, and kidneys. There is a PEG tube in the stomach in expected position. No PET avid adenopathy in the abdomen or pelvis. No suspicious areas of elevated SUV activity within the spine or the imaged osseous structures. IMPRESSION: 1. Interval resolution of the PET avid left base of tongue mass and the left-sided internal jugular adenopathy. No residual and/or new areas of elevated SUV activity in the neck suggestive of residual or metastatic disease. 2. No findings of metastatic disease in the chest, abdomen, and pelvis. All CT scans at this facility use iterative reconstruction technique, dose modulation and/or weight based dosing when appropriate to reduce radiation dose to as low as reasonably achievable. Approved By: Mor Ruiz MD 11/02/2021 12:59 PM [id number] Julio Latif Jr., MD IM PET ORDERABLES F inal Result documented in this encounter Visit Diagnoses Diagnosis Malignant neoplasm of base of tongue (HC)- Primary Malignant neoplasm of base of tongue Malignant neoplasm of base of tongue (HC) Malignant neoplasm of base of tongue documented in this encounter Additional Health Concerns Infection Onset Date Last Indicated Resolved Time R/O C. diff 08/17/2024 08/17/2024 08/18/2024 1:43 AM EDT documented as of this encounter Care Teams Laundry Tub Maker Relationship Specialty Start Date End Date Sharla Marrero MD PCP - General 05/02/21 documented as of this encounter
--- OUTSIDE RECORDS SUMMARY | 2024-12-13 12:19 | XMS_ITS | Encounter Summary ---
Author Organization [facility] Address [address] [place] [place] [address] Care Team Providers Care Red Leader Name Role Phone Sharla Marrero MD Primary Care Provider [phone] Reason for Referral * Cat-Scan (Emergency) - Closed Specialty Diagnoses / Procedures Referred By Contac t Referred To Contact Diagnoses Malignant neoplasm of base of tongue (HC) Procedures CT head without contrast Julio Latif Jr., MD [address] [facility] [address] [place] [address] Phone: tel: fax: [facility] Pre Service Department [address] [place] [address] Phone: tel: Referral ID Status Reason Start Date Expiration Date Visits Re quested Visits Authorized [id number] Closed 04/29/2024 1 1 * Cat-Scan (Emergency) - Closed Specialty Diagnoses / Procedures Referred By Contac t Referred To Contact Diagnoses Malignant neoplasm of base of tongue (HC) Procedures CT chest abdomen pelvis with contrast Julio Latif Jr., MD [address] [facility] [address] [place] [address] Phone: tel: fax: [facility] Pre Service Department [address] [place] [address] Phone: tel: Referral ID Status Reason Start Date Expiration Date Visits Re quested Visits Authorized [id number] Closed 05/04/2024 06/02/2024 1 1 Encounter Details Date Type Department Care Team (Late st Contact Info) Description 04/29/2024 Transcribed Order [facility] Pre Service Department [address] [facility] [place] [address] Julio Latif Jr., MD [address] [facility] [address] [place] [address] Malignant neoplasm of base of [...] documented as of this encounter Results * CT chest abdomen pelvis with contrast (05/06/2024 5:09 PM EST) Anatomical Region Laterality Modality Abdomen, Chest, Pelvis, Hip, Spine Computed Tomography 05/06/2024 5:36 PM EST Impressions 05/06/2024 5:32 PM EST 1. Aneurysmal dilatation ascending aorta at 5.0 cm. Slight increased from maximal diameter 4.[address] 09/29/2023. 2. Index precarinal node has short axis I 0.3 cm with increase in size from 09/29/2023. Indeterminate. With infiltrates, potentially reactive but cannot exclude oncologic disease activity. 3. Left lower lobe. 4. Interval from 09/29/2023, left lower lobe medial segment bronchiectasis with reticular mixed reticulonodular and patchy groundglass infiltrates. Favor inflammatory/infectious process. Recommend follow-up chest CT in 3 months. 5. Subcentimeter groundglass nodules in the lingula are interval from 09/29/2023 and indeterminate. 6. Small less than 5 mm perifissural nodules in the right lung have stability, supporting stable intrapulmonary lymph nodes. 6. Subcapsular left renal lesion has increased in size from 2022. While hyperdense cyst would be common, cannot exclude vascularized mass. Recommend follow-up nonemergent renal protocol CT. 7. Left posterior fifth rib fractures are subacute from chest x-ray 04/08/2024. Osteopenia along the subacute fracture margin is of indeterminate significance. Potential reparative bone resorption but cannot exclude underlying pathologic fracture. No other aggressive osseous lesion. 8. Trace pelvic free fluid, trace pelvic ascites. 9. Interval mixed density deep subcutaneous collection in the lower left flank. Imaging pattern would support Zepeda-Diogo lesion (hemolymphatic collection from internal degloving injury) in appropriate clinical context. Recent injury? If clinical presentation is discordant, body wall MRI can be pursued for further characterization. 10. Other chronic findings as listed. Comment: Unless the patient's specific circumstances suggest otherwise, any liver lesion 0.5 cm or less, any cystic kidney lesion less than 1.0 cm, and/or any adrenal lesion 1.0 cm or less not otherwise characterized in this report as possessing suspicious or indeterminate imaging features is/are most likely to be benign and do not require follow-up imaging or biopsy Electronically Signed By: Linda Coleman 05/06/2024 5:32 PM KADE Albright 05/06/2024 5:[address] COMBO CHEST ABDOMEN PELVIS ORAL AND IV CONTRAST Clinical data: Malignant neoplasm of base of tongue Comparison chest x-ray 04/29/2024, chest CT 09/29/2023, CT abdomen and pelvis 01/13/2023 Procedure: Standard dose of oral and IV contrast for routine protocol. Axial source images supplemented by coronal and sagittal reformats. All CT scans at this facility use iterative reconstruction, dose modulation and/or weight based dosing when appropriate to reduce radiation dose to as low as reasonably achievable. Findings chest: Healed sternotomy. Coronary artery calcifications are present, partially obscured by motion at LAD, circumflex and RCA. Mild calcified aortic atherosclerosis. Ascending segment aneurysmal at 5.0 x 4.7 cm, tapering prior to the arch. Previously measured at 4.9 x 4.6 cm. Right chest port catheter to proximal SVC. Heart and great vessels are otherwise unremarkable. Precarinal node measures 1.7 x 1.3 cm. Increased in size from 09/29/2023 Other small mediastinal nodes have short axes less than 1 cm. Left lower lobe medial basilar segment, interval bronchiectasis with mixed reticulonodular and hazy groundglass segmental infiltrate. Motion partially obscures groundglass nodules up to 8 mm in the lingula image 35 series 2. Interval change. Stable linear scarring right lower lobe. Right middle lobe perifissural 4 mm nodule. Axial image 38 series 2 and sagittal image 121. Stable. Additional less than 5 mm right middle lobe perifissural nodules flattened along the minor fissure on sagittal image 103, seen en face on axial image 36. Stable from sagittal image 82, 80 Interval minimal scarring at the costophrenic angles in the right middle lobe and lingula. No pleural effusion. Bone windows accentuate spondylosis. No aggressive osseous lesion. FINDINGS ABDOMEN: Subcapsular interpole left kidney, protruding circumscribed 1.4 cm lesion measures 69 Hounsfield units. Coronal image 68. Axial image 80. Increased in size from 2022. Subcentimeter cyst upper pole right kidney. Nephrograms otherwise symmetric. No hydroureteronephrosis. No adrenal nodule. Liver unremarkable. Spleen unremarkable. Severe fatty atrophy of the pancreas. Calcified plaque abdominal aorta, tortuous without ectasia. Left-sided IVC, anatomic variant. Gastrostomy tube in satisfactory position. Luminal contrast is diluted by retained content distending the stomach. Diluted luminal contrast is present through upper abdominal small bowel. No transition zone in the upper abdomen. No enlarged retroperitoneal or abdominal nodes by CT criteria. No upper abdominal free fluid. FINDINGS PELVIS: In the subcutaneous fat of the left flank extending to just above the iliac crest, circumscribed deep subcutaneous collection measures 11.7 x 4.6 x 612.3. Mildly heterogeneous with density measurements ranging from 27 to 41 Hounsfield units. Coronal image 73. Calcified iliofemoral atherosclerosis. Mild prostamegaly. Seminal vesicles symmetric. Bladder unremarkable. No pelvic ureteral dilatation. Opacified pelvic small bowel and unopacified rectosigmoid are unremarkable. Trace retrovesical free fluid. No pelvic inflammatory change. Bone windows accentuate multilevel spondylosis. Chronic L5 bilateral spondylolysis with grade 1 spondylolisthesis. Concordant to chest x-ray 04/29/2024, left posterior fifth rib fracture image 29 series 2. No solid callus. Subtle lucency at the fracture site is indeterminate. Potential bony resorption is reparative process but cannot exclude pathologic fracture. Otherwise, no aggressive osseous lesion. Procedure Note Linda Coleman MD - 05/06/2024 CT COMBO CHEST ABDOMEN PELVIS ORAL AND IV CONTRAST Clinical data: Malignant neoplasm of base of tongue Comparison chest x-ray 04/29/2024, chest CT 09/29/2023, CT abdomen and pelvis 01/13/2023 Procedure: Standard dose of oral and IV contrast for routine protocol. Axial source images supplemented by coronal and sagittal reformats. All CT scans at this facility use iterative reconstruction, dose modulation and/or weight based dosing when appropriate to reduce radiation dose to as low as reasonably achievable. Findings chest: Healed sternotomy. Coronary artery calcifications are present, partially obscured by motion at LAD, circumflex and RCA. Mild calcified aortic atherosclerosis. Ascending segment aneurysmal at 5.0 x 4.7 cm, tapering prior to the arch. Previously measured at 4.9 x 4.6 cm. Right chest port catheter to proximal SVC. Heart and great vessels are otherwise unremarkable. Precarinal node measures 1.7 x 1.3 cm. Increased in size from 09/29/2023 Other small mediastinal nodes have short axes less than 1 cm. Left lower lobe medial basilar segment, interval bronchiectasis with mixed reticulonodular and hazy groundglass segmental infiltrate. Motion partially obscures groundglass nodules up to 8 mm in the lingula image 35 series 2. Interval change. Stable linear scarring right lower lobe. Right middle lobe perifissural 4 mm nodule. Axial image 38 series 2 and sagittal image 121. Stable. Additional less than 5 mm right middle lobe perifissural nodules flattened along the minor fissure on sagittal image 103, seen en face on axial image 36. Stable from sagittal image 82, 80 Interval minimal scarring at the costophrenic angles in the right middle lobe and lingula. No pleural effusion. Bone windows accentuate spondylosis. No aggressive osseous lesion. FINDINGS ABDOMEN: Subcapsular interpole left kidney, protruding circumscribed 1.4 cm lesion measures 69 Hounsfield units. Coronal image 68. Axial image 80. Increased in size from 2022. Subcentimeter cyst upper pole right kidney. Nephrograms otherwise symmetric. No hydroureteronephrosis. No adrenal nodule. Liver unremarkable. Spleen unremarkable. Severe fatty atrophy of the pancreas. Calcified plaque abdominal aorta, tortuous without ectasia. Left-sided IVC, anatomic variant. Gastrostomy tube in satisfactory position. Luminal contrast is diluted by retained content distending the stomach. Diluted luminal contrast is present through upper abdominal small bowel. No transition zone in the upper abdomen. No enlarged retroperitoneal or abdominal nodes by CT criteria. No upper abdominal free fluid. FINDINGS PELVIS: In the subcutaneous fat of the left flank extending to just above the iliac crest, circumscribed deep subcutaneous collection measures 11.7 x 4.6 x 612.3. Mildly heterogeneous with density measurements ranging from 27 to 41 Hounsfield units. Coronal image 73. Calcified iliofemoral atherosclerosis. Mild prostamegaly. Seminal vesicles symmetric. Bladder unremarkable. No pelvic ureteral dilatation. Opacified pelvic small bowel and unopacified rectosigmoid are unremarkable. Trace retrovesical free fluid. No pelvic inflammatory change. Bone windows accentuate multilevel spondylosis. Chronic L5 bilateral spondylolysis with grade 1 spondylolisthesis. Concordant to chest x-ray 04/29/2024, left posterior fifth rib fracture image 29 series 2. No solid callus. Subtle lucency at the fracture site is indeterminate. Potential bony resorption is reparative process but cannot exclude pathologic fracture. Otherwise, no aggressive osseous lesion. IMPRESSION: 1. Aneurysmal dilatation ascending aorta at 5.0 cm. Slight increased from maximal diameter 4.[address] 09/29/2023. 2. Index precarinal node has short axis I 0.3 cm with increase in size from 09/29/2023. Indeterminate. With infiltrates, potentially reactive but cannot exclude oncologic disease activity. 3. Left lower lobe. 4. Interval from 09/29/2023, left lower lobe medial segment bronchiectasis with reticular mixed reticulonodular and patchy groundglass infiltrates. Favor inflammatory/infectious process. Recommend follow-up chest CT in 3 months. 5. Subcentimeter groundglass nodules in the lingula are interval from 09/29/2023 and indeterminate. 6. Small less than 5 mm perifissural nodules in the right lung have stability, supporting stable intrapulmonary lymph nodes. 6. Subcapsular left renal lesion has increased in size from 2022. While hyperdense cyst would be common, cannot exclude vascularized mass. Recommend follow-up nonemergent renal protocol CT. 7. Left posterior fifth rib fractures are subacute from chest x-ray 04/08/2024. Osteopenia along the subacute fracture margin is of indeterminate significance. Potential reparative bone resorption but cannot exclude underlying pathologic fracture. No other aggressive osseous lesion. 8. Trace pelvic free fluid, trace pelvic ascites. 9. Interval mixed density deep subcutaneous collection in the lower left flank. Imaging pattern would support Zepeda-Diogo lesion (hemolymphatic collection from internal degloving injury) in appropriate clinical context. Recent injury? If clinical presentation is discordant, body wall MRI can be pursued for further characterization. 10. Other chronic findings as listed. Comment: Unless the patient's specific circumstances suggest otherwise, any liver lesion 0.5 cm or less, any cystic kidney lesion less than 1.0 cm, and/or any adrenal lesion 1.0 cm or less not otherwise characterized in this report as possessing suspicious or indeterminate imaging features is/are most likely to be benign and do not require follow-up imaging or biopsy Electronically Signed By: Linda Coleman 05/06/2024 5:32 PM KADE Julio Latif Jr., MD IM CT ORDERABLES Fi nal Result * CT head without contrast (05/06/2024 5:09 PM EST) Anatomical Region Laterality Modality Head Computed Tomogra phy 05/06/2024 5:15 PM EST Impressions 05/06/2024 5:12 PM EST Mild chronic microangiopathic changes Aspect score 10 [address] scans at this facility use interactive reconstruction technique, dose modulation, and/or weight based dose seen within appropriate to reduce radiation dose to as low as reasonably achievable. Electronically Signed By: Bhupendra Bunn MD 05/06/2024 5:12 PM [facility] Narrative 05/06/2024 5:12 PM EST Clinical history: Headache Exam: CT of the head without contrast Technique: Axial imaging obtained from the skull base to the vertex without contrast. Coronal and sagittal imaging obtained. Comparison: Findings: The brain parenchyma is unremarkable without territorial infarct or mass lesion. There is some mild left parietal subcortical white matter hypodense change also seen in 2021. There is some vascular calcifications. There is no intra-or extra-axial blood. The ventricles are normal in size and shape. Soft tissue evaluation demonstrates no acute process. Bone window evaluation is within normal limits. Procedure Note Bhupendra Bunn MD - 05/06/2024 Clinical history: Headache Exam: CT of the head without contrast Technique: Axial imaging obtained from the skull base to the vertex without contrast. Coronal and sagittal imaging obtained. Comparison: Findings: The brain parenchyma is unremarkable without territorial infarct or mass lesion. There is some mild left parietal subcortical white matter hypodense change also seen in 2021. There is some vascular calcifications. There is no intra-or extra-axial blood. The ventricles are normal in size and shape. Soft tissue evaluation demonstrates no acute process. Bone window evaluation is within normal limits. IMPRESSION: Mild chronic microangiopathic changes Aspect score 10 out [address] scans at this facility use interactive reconstruction technique, dose modulation, and/or weight based dose seen within appropriate to reduce radiation dose to as low as reasonably achievable. Electronically Signed By: Bhupendra Bunn MD 05/06/2024 5:12 PM [facility] Julio Latif Jr., MD IM CT ORDERABLES Fi nal Result documented in this encounter Visit Diagnoses Diagnosis Malignant neoplasm of base of tongue (HC)- Primary Malignant neoplasm of base of tongue Malignant neoplasm of base of tongue (HC) Malignant neoplasm of base of tongue Malignant neoplasm of base of tongue (HC) Malignant neoplasm of base of tongue documented in this encounter Additional Health Concerns Infection Onset Date Last Indicated Resolved Time R/O C. diff 08/17/2024 08/17/2024 08/18/2024 1:43 AM EDT documented as of this encounter Care Teams Red Leader Relationship Specialty Start Date End Date Sharla Marrero MD PCP - General 05/02/21 documented as of this encounter
--- OUTSIDE RECORDS SUMMARY | 2024-12-13 12:19 | XMS_ITS | Encounter Summary ---
Author Organization [facility] Address [address] [place] [address] Care Team Providers Care Office Copy Selector Name Role Phone Sharla Marrero MD Primary Care Provider [phone] Reason for Referral * Speech Therapy (Routine) - Closed Specialty Diagnoses / Procedures Referred By Contac t Referred To Contact Speech-Language Pathologist / Central Scheduling Diagnoses Malignant neoplasm of base of tongue (HC) Julio Latif Jr., MD [address] [facility] [address] [place] [address] Phone: tel: fax: [facility] Pre Service Department [address] [place] [address] Referral ID Status Reason Start Date Expiration Date V isits Requested Visits Authorized [id number] Closed Specialty Services Required 05/23/2021 1 1 Scheduling Instructions PLEASE NOTE: The address listed above is for scheduling purposes ONLY! This will not be where your therapy appointments occur. Encounter Details Date Type Department Care Team (Late st Contact Info) Description 05/23/2021 Transcribed Order [facility] [address] [place] [address] Julio Latfi Jr., MD [address] [facility] [address] [place] [address] Malignant neoplasm of base of [...] documented as of this encounter Care Teams Office Copy Selector Relationship Specialty Start Date End Date Sharla Marrero MD PCP - General 05/02/21 documented as of this encounter
--- OUTSIDE RECORDS SUMMARY | 2024-12-13 12:19 | XMS_ITS | Encounter Summary ---
Author Organization [facility] Address [address] [place] [address] Care Team Providers Care Cook Candy Name Role Phone Sharla Marrero MD Primary Care Provider [phone] Reason for Referral * Speech Therapy (Routine) - Closed Specialty Diagnoses / Procedures Referred By Contumm t Referred To Contact Speech-Language Pathologist / Central Scheduling Diagnoses Malignant neoplasm of base of tongue (HC) System, Provider Not InMD [facility] Therapy [address] [place] [address] Phone: tel: Referral ID Status Reason Start Date Expiration Date Visits Re quested Visits Authorized [id number] Closed 08/29/2022 08/29/2023 1 1 Scheduling Instructions PLEASE NOTE: The address listed above is for scheduling purposes ONLY! This will not be where your therapy appointments occur. Requesting First Available; Speech Therapy currently at [place], but needs something closer Encounter Details Date Type Department Care Team (Late st Contact Info) Description 08/29/2022 Transcribed Order [facility] Pre-Service Department [address] [place] [address] System, Provider Not InMD Malignant neoplasm of base of tongue (HC) [...] neoplasm of base of tongue (HC) Ordered: 08/29/2022 documented as of this encounter Visit Diagnoses Diagnosis Malignant neoplasm of base of tongue (HC)- Primary Malignant neoplasm of base of tongue documented in this encounter Additional Health Concerns Infection Onset Date Last Indicated Resolved Time R/O C. diff 08/17/2024 08/17/2024 08/18/2024 1:43 AM EDT documented as of this encounter Care Teams Cook Candy Relationship Specialty Start Date End Date Sharla Marrero MD PCP - General 05/02/21 documented as of this encounter
--- OUTSIDE RECORDS SUMMARY | 2024-12-13 12:19 | XMS_ITS | Encounter Summary ---
Author Organization [facility] Address [address] [place] [address] Care Team Providers Care School Resource Officer Name Role Phone Sharla Marrero MD Primary Care Provider [phone] Encounter Details Date Type Department Care Team (Late st Contact Info) Description 03/08/2022 Community Orders [facility]UAL DEPT Salomon, Julio Lorenz Jr., MD [address] [facility] [address] [place] [address] Social History Tobacco Use Types Packs/Day Years Used Date Smoking Tobacco: Never Smokeless Tobacco: Former Quit: 2011 Alcohol Use Standard Drinks/Week Comments Yes 0 (1 standard drink = 0.6 oz pur e alcohol) occ PHQ-2 Answer Date Recorded PHQ-2 Score 0 11/12/2021 Sex and Gender Information Value Date Recorded [...] suspected to have Coronavirus/COVID-19? No / Unsure 03/06/2022 1:53 PM EST documented as of this encounter Plan of Treatment Not on file documented as of this encounter Visit Diagnoses Not on filedocumented in this encounter Additional Health Concerns Infection Onset Date Last Indicated Resolved Time R/O C. diff 08/17/2024 08/17/2024 08/18/2024 1:43 AM EDT documented as of this encounter Care Teams School Resource Officer Relationship Specialty Start Date End Date Sharla Marrero MD PCP - General 05/02/21 documented as of this encounter
--- OUTSIDE RECORDS SUMMARY | 2024-12-13 12:19 | XMS_ITS | Encounter Summary ---
Author Organization [facility] Address [address] [place] [address] Care Team Providers Care Actuarial Science Professor Name Role Phone Nopcp, Per Patient Primary Care Provider [phone] Sharla Marrero MD Primary Care Provider [phone] Encounter Details Date Type Department Care Team (Late st Contact Info) Description 04/27/2021 Transcribed Order [facility] Pre Service Department [address] [place] [address] Douglas Gimenez MD [address] [place] [address] Social History Tobacco Use Types Packs/Day Years [...] Last Indicated Resolved Time R/O COVID-19 07/23/2021 07/23/202107/2307/23/2021 5:44 PM EDT R/O Respiratory Infectious D iseases (Including COVID-19) 07/23/2021 07/23/2021 07/23/2021 5:44 PM EDT R/O C. diff 08/17/2024 08/17/2024 08/18/2024 1:43 AM EDT documented as of this encounter Care Teams Actuarial Science Professor Relationship Specialty Start Date End Date Nopcp, Per Patient, PCP - General Family Medicine 10/30/16 05/01/21 Sharla Marrero MD PCP - General 05/02/21 documented as of this encounter
--- OUTSIDE RECORDS SUMMARY | 2024-12-13 12:19 | XMS_ITS | Encounter Summary ---
Author Organization [facility] Address [address] [place] [address] Care Team Providers Care Bookmobile Driver Name Role Phone Sharla Marrero MD Primary Care Provider Reason for Referral * Diagnostic X-Ray (Routine) - Closed Specialty Diagnoses / Procedures Referred By Contac t Referred To Contact Diagnoses Malignant neoplasm of base of tongue (HC) Procedures X-ray chest PA and lateral Julio Latif Jr., MD [address] [place] [address] Phone: tel: fax: [facility] Pre Service Department [facility] [place] [address] Phone: tel: Referral ID Status Reason Start Date Expiration Date Visits Re quested Visits Authorized [id number] Closed 04/29/2024 1 1 Encounter Details Date Type Department Care Team (Late st Contact Info) Description 04/29/2024 Transcribed Order [facility] Admitting [address] [place] [id number] Julio Latif Jr., MD [address] [place] [address] Malignant neoplasm of base of [...] documented as of this encounter Results * X-ray chest PA and lateral (04/29/2024 3:58 PM EST) Anatomical Region Laterality Modality Chest Digital Radiogra phy 04/29/2024 4:08 PM EST Impressions 04/29/2024 4:05 PM EST 1. No acute cardiopulmonary process. 2. Mildly displaced fracture of the left posterior fifth rib. Correlate with point tenderness. Electronically Signed By: Fady Wilkinson MD 04/29/2024 4:05 PM WILKINSON Narrative 04/29/2024 4:05 PM EST EXAM: XR CHEST PA AND LATERAL INDICATION: Tongue base cancer. TECHNIQUE: Radiograph(s) of the chest were obtained, 2 views. COMPARISON: CT 09/29/2023 FINDINGS: Support Devices: None. Cardiomediastinal contours: Normal. Lungs: No focal areas of effusion or consolidation. No pneumothorax. Bones: Mildly displaced fracture of the left posterior fifth rib. Procedure Note Fady Wilkinson MD - 04/29/2024 EXAM: XR CHEST PA AND LATERAL INDICATION: Tongue base cancer. TECHNIQUE: Radiograph(s) of the chest were obtained, 2 views. COMPARISON: CT 09/29/2023 FINDINGS: Support Devices: None. Cardiomediastinal contours: Normal. Lungs: No focal areas of effusion or consolidation. No pneumothorax. Bones: Mildly displaced fracture of the left posterior fifth rib. IMPRESSION: 1. No acute cardiopulmonary process. 2. Mildly displaced fracture of the left posterior fifth rib. Correlate with point tenderness. Electronically Signed By: Fady Wilkinson MD 04/29/2024 4:05 PM MEREDITH Julio Latif Jr., MD IMG DIAGNOSTIC IMAGI NG ORDERABLES Final Result documented in this encounter Visit Diagnoses [...] documented as of this encounter Care Teams Bookmobile Driver Relationship Specialty Start Date End Date Sharla Marrero MD PCP - General 05/02/21 documented as of this encounter
--- OUTSIDE RECORDS SUMMARY | 2024-12-13 12:19 | XMS_ITS | Encounter Summary ---
Author Organization [facility] Address [address] [place] [address] Care Team Providers Care Steam Turbine Assembler Name Role Phone Sharla Marrero MD Primary Care Provider [phone] Reason for Referral * Interventional Radiology (Emergency) - Closed Specialty Diagnoses / Procedures Referred By Contac t Referred To Contact Central Scheduling Diagnoses Malignant neoplasm of base of tongue (HC) Procedures IR gastric tube check Julio Latif Jr., MD [address] [place] [address] Phone: tel: fax: [facility] Pre Service Department [address] [place] [address] Phone: tel: Referral ID Status Reason Start Date Expiration Date Visits Re quested Visits Authorized [id number] Closed 09/18/2021 1 1 Encounter Details Date Type Department Care Team (Late st Contact Info) Description 09/18/2021 Community Orders [facility] Julio Latif Jr., MD [address] [place] [address] Malignant neoplasm of base of [...] suspected to have Coronavirus/COVID-19? No / Unsure 09/20/2021 2:18 PM EDT documented as of this encounter Plan of Treatment Not on file documented as of this encounter Results * IR gastric tube check (09/20/2021 4:00 PM EDT) Anatomical Region Laterality Modality X-Ray Angiograph y 09/20/2021 4:22 PM EDT Impressions 09/20/2021 4:19 PM EDT Prior gastrostomy tube has partially retracted with the tip and balloon within the subcutaneous soft tissue and gastrocutaneous fistula outside the lumen of the stomach Successful fluoroscopic guided replacement of percutaneous gastrostomy tube in satisfactory position as above Approved By: Alexi Jimenez 09/20/2021 4:19 PM [id number] Narrative 09/20/2021 4:19 PM EDT Fluoroscopic guided gastrostomy tube check and replacement HISTORY: Malfunctioning percutaneous gastrostomy tube COMPARISON: Prior gastrostomy tube placement June 04, 2021 images TECHNIQUE: After informed consent obtained, patient placed supine on fluoroscopic table. A timeout performed. The anterior abdominal wall and percutaneous gastrostomy tube were prepped and draped in a sterile fashion. 8 cc of Gastrografin was injected through the gastrostomy tube. Images show that the balloon has partly deflated the prior study and has pulled back into the gastrocutaneous fistula just below the anterior abdominal wall. There was no extravasation of contrast into the peritoneal cavity. 0.035 stiff Amplatz wire was placed through the gastrostomy tube through the gastrocutaneous fistula back into the lumen of the fundus of the stomach. The balloon was deflated, and the prior gastrostomy tube was removed. A new, 18 [employer] [employer] percutaneous gastrostomy tube was placed over the wire, back to the same gastrocutaneous fistula and back into the lumen of the fundus of the stomach. The inner wire was removed. The balloon was inflated with 10 cc of sterile water. 5 cc of Gastrografin was injected through the newly replaced gastrostomy tube showing the tip of the gastrostomy tube within the lumen of the fundus of the stomach. The gastrostomy tube was flushed with 5 cc of sterile saline. No immediate complications. Total fluoroscopy time: 1.2 minutes Total fluoroscopic images: 4 Procedure Note Alexi Jimenez MD - 09/20/2021 Fluoroscopic guided gastrostomy tube check and replacement HISTORY: Malfunctioning percutaneous gastrostomy tube COMPARISON: Prior gastrostomy tube placement June 04, 2021 images TECHNIQUE: After informed consent obtained, patient placed supine on fluoroscopic table. A timeout performed. The anterior abdominal wall and percutaneous gastrostomy tube were prepped and draped in a sterile fashion. 8 cc of Gastrografin was injected through the gastrostomy tube. Images show that the balloon has partly deflated the prior study and has pulled back into the gastrocutaneous fistula just below the anterior abdominal wall. There was no extravasation of contrast into the peritoneal cavity. 0.035 stiff Amplatz wire was placed through the gastrostomy tube through the gastrocutaneous fistula back into the lumen of the fundus of the stomach. The balloon was deflated, and the prior gastrostomy tube was removed. A new, 18 [place] [employer] percutaneous gastrostomy tube was placed over the wire, back to the same gastrocutaneous fistula and back into the lumen of the fundus of the stomach. The inner wire was removed. The balloon was inflated with 10 cc of sterile water. 5 cc of Gastrografin was injected through the newly replaced gastrostomy tube showing the tip of the gastrostomy tube within the lumen of the fundus of the stomach. The gastrostomy tube was flushed with 5 cc of sterile saline. No immediate complications. Total fluoroscopy time: 1.2 minutes Total fluoroscopic images: 4 IMPRESSION: Prior gastrostomy tube has partially retracted with the tip and balloon within the subcutaneous soft tissue and gastrocutaneous fistula outside the lumen of the stomach Successful fluoroscopic guided replacement of percutaneous gastrostomy tube in satisfactory position as above Approved By: Alexi Jimenez 09/20/2021 4:19 PM [id number] us Julio Latif Jr., MD IMG IR ORDERABLES Fi nal Result documented in this [...] documented as of this encounter Care Teams Steam Turbine Assembler Relationship Specialty Start Date End Date Sharla Marrero MD PCP - General 05/02/21 documented as of this encounter
--- OUTSIDE RECORDS SUMMARY | 2024-12-13 12:20 | XMS_ITS | Clinical Summary ---
Author Organization [facility] Address [address] [place] [address] Phone Care Team Providers Care Transport Medic Name Role Phone Sharla Marrero MD Primary Care Provider [phone] Allergies No known active allergies Medications levothyroxine (SYNTHROID, LEVOTHROID) 200 mcg tablet Take 1 tablet (200 mcg total) by mouth 1 (one) time each day before breakfast. Active rivaroxaban (XARELTO) 20 mg tablet Take 1 tablet (20 mg total) by mouth. Take with food. At night Active carvediloL (COREG) 3.125 mg tablet Take 1 tablet (3.125 mg total) by mouth 2 (two) times a day with meals. Active temazepam (RESTORIL) 7.5 mg capsule Take 4 capsules (30 mg total) by mouth at bedtime as needed for sleep. Active atorvastatin (LIPITOR) 40 mg tablet Take by mouth at bedtime. Active empagliflozin (Jardiance) 10 mg tablet Take 1 tablet (10 mg total) by mouth 1 (one) time each day. Unsure of dose Active pembrolizumab (KEYTRUDA IV) Infuse into a venous catheter. Active Surgical History Surgery Date Site/Laterality Comments CORONARY ARTERY BYPASS GRAFT TONSILLECTOMY US HEAD AND NECK SOFT TISSUE CANCER Surgery for head and neck cancer Medical History Medical History Date Comments Hyperlipidemia Hypertension Diabetes mellitus (CMS/HCC V24, CMS/HCC V28) Social History Tobacco Use Types Packs/Day Years Used Date Smoking Tobacco: Never Smokeless Tobacco: Former Chew Tobacco Cessation:Counseling Given: Not Answered Alcohol Use Standard Drinks/Week Comments Yes 2 (1 standard drink = 0.6 oz pur e alcohol) Sex and Gender Information Value Date Recorded Sex Assigned at Male 10/03/2023 6:06 AM EDT Legal Sex Male 11:20 AM EDT Gender Identity Male 10/03/2023 6:06 AM EDT Sexual Orientation Straight 10/03/2023 6: 06 AM EDT Obstetrics History Last Filed Vital Signs Vital Sign Reading Time Taken Comments Blood Pressure 118/72 02/09/2024 1:40 PM EST Pulse 61 02/09/2024 1:40 PM EST Temperature 36.5 C (97.7 F) 02/09/2024 10:23 AM EST Respiratory Rate 16 02/09/2024 1:40 PM EST Oxygen Saturation 100% 02/09/2024 1:40 PM EST Inhaled Oxygen Concentration - - Weight 81.6 kg (180 lb) 02/09/2024 10:23 AM EST Height 175.3 cm (5' 9) 02/09/2024 10:23 AM EST Body Mass Index 26.58 02/09/2024 10:23 AM EST Plan of Treatment Health Maintenance Due Date Last Done Comments Diabetes: Annual Foot Exam 1972 Diabetes: Annual Retina Eye Exam 1972 DTaP,Tdap,and Td Vaccines (1 - Tdap) 1981 Hepatitis A Vaccines (1 of 2 - Risk 2-dose series) 1981 Pneumococcal Vaccine: 50+ Years (1 of 2 - PCV) 1981 Zoster Vaccines (1 of 2) 1981 COVID-19 Vaccine (2 - Brooke risk series) 07/08/2020 06/10/2020 RSV Immunization Adult Patients (1 - Risk 60-74 years 1-dose series) 2022 Cholesterol Screening (Lipid Panel) 07/15/2023 HIV Screening 07/15/2023 Hepatitis C Screening 07/15/2023 Social Influencers of Health Screening 07/15/2023 Diabetes: Annual Urine Albumin-Creatinine Ratio (uACR) 10/06/2023 Diabetes: Blood Sugar Control Test (HGBA1C) 10/06/2023 08/10/2021, 08/10/2021 Diabetes: Annual GFR (Glomerular Filtration Rate) 01/15/2024 01/14/2023, 05/24/2022, 10/07/2021, Additional history exists Hypertension/CHF/CAD Annual BMP Blood Test 01/15/2024 01/14/2023, 05/24/2022, 10/07/2021, Additional history exists Depression Screening 03/03/2024 Influenza Vaccine (#1) 2024 01/20/2020 Colorectal Cancer Screening: Colonoscopy 10/05/2033 10/06/2023 MMR Vaccines Completed 10/12/1980 HIB Vaccines Aged Out No longer eligi ble based on patient's age to complete this topic HPV Vaccines Aged Out No longer eligi ble based on patient's age to complete this topic Hepatitis B Vaccines Aged Out No long er eligible based on patient's age to complete this topic IPV Vaccines Aged Out No longer eligi ble based on patient's age to complete this topic Meningococcal ACWY Vaccine Aged Out N o longer eligible based on patient's age to complete this topic Meningococcal B Vaccine Aged Out No l onger eligible based on patient's age to complete this topic RSV Immunization Patients Under 20 months Aged Out No longer eligible based on patient's age to complete this topic Varicella Vaccines Aged Out No longer eligible based on patient's age to complete this topic Medical Devices Implanted Type Area Bulb Filler Device Identifier Shelf Expiration Date Model / Serial / Lot Central/Perip heral Catheters And Ports Central/Perip heral Catheters and Ports Right: Chest Implants Implants Left: Abdomen Description:FEEDING TUBE Chin N/A: Chin Description:Metal implant in chin Procedures Procedure Name Priority Date/Time Associated Diagnosis Comments COLONOSCOPY Routine 10/06/2023 1:06 PM EDT Encounter for screening for malignant neoplasm of colon from Last 3 Months or Most Recently Relevant to Health Maintenance Results * COLONOSCOPY Anesthesia - MAC; SMAT ENDOSCOPY (10/06/2023 1:06 PM EDT) Anatomical Region Laterality Modality Endoscopy 10/06/2023 12:3 3 PM EDT Impressions 10/06/2023 1:21 PM EDT - Non-bleeding internal hemorrhoids. - One 6 mm polyp in the transverse colon, removed with a cold snare. Resected and retrieved. Recommendation: - Discharge patient to home. - Resume previous diet. - Continue present medications. - No aspirin, ibuprofen, naproxen, or other non-steroidal anti-inflammatory drugs for 7 days. - Resume Xarelto (rivaroxaban) at prior dose in 5 days. - Await pathology results. - Repeat colonoscopy in 5 years for surveillance. - Return to GI clinic in 6 weeks. - The patient will be observed post-procedure, until all discharge criteria are met. Narrative 10/06/2023 1:21 PM EDT Patient Name: Isaiah Cordova Procedure Date: 10/06/2023 Date of : 1960 Admit Type: Outpatient Age: 62 Gender: Male Attending MD: Jayce Hawkins MD Procedure: Colonoscopy Indications: Screening for colorectal malignant neoplasm Providers: Jayce Hawkins MD (Doctor) Referring MD: Jayce Hawkins MD, LESLIE HOPE MD Medicines: Propofol per Anesthesia Complications: No immediate complications. Procedure: Pre-Anesthesia Assessment: - [place] Protocol: - Pre-procedure Verification: Prior to the procedure, the patient's identity was verified by full name, date of and address. The patient's identity was verified on all pertinent medical records, including History and Physical, nursing assessment and pre-anesthesia assessment. Also prior to the procedure, a History and Physical was performed, and patient medications, allergies and sensitivities were reviewed. The patient's tolerance of previous anesthesia was reviewed. The patient is competent. The risks and benefits of the procedure and the sedation options and risks were discussed with the patient. All questions were answered and informed consent was obtained. - Marking: The endoscopic procedure was visually marked on a patient wrist band delineating the patient name, proposed procedure and endoscopist's initials. - Time-Out: Prior to the start of the procedure, the patient's identification, proposed procedure, accurate signed consent, correctly labeled images and records, and need for prophylactic antibiotics were verified by the physician, the nurse and the anesthesiologist in the pre-procedure area in the procedure room in the endoscopy suite. - ASA Grade Assessment: III - A patient with severe systemic disease. - Airway Examination: normal oropharyngeal airway and neck mobility. After obtaining informed consent, the scope was passed under direct vision. Throughout the procedure, the patient's blood pressure, pulse, and oxygen saturations were monitored continuously. The COLONOSCOPE was introduced through the anus and advanced to the cecum, identified by appendiceal orifice and ileocecal valve. The colonoscopy was performed without difficulty. The patient tolerated the procedure well. The quality of the bowel preparation was excellent. Findings: The perianal and digital rectal examinations were normal. Non-bleeding internal hemorrhoids were found during retroflexion. The hemorrhoids were medium-sized. A 6 mm polyp was found in the transverse colon. The polyp was sessile. The polyp was removed with a cold snare. Resection and retrieval were complete. There is no endoscopic evidence of bleeding, diverticula, inflammation, mass, ulcerations or tumor in the entire colon. Procedure Code(s): --- Professional --- 86798, Colonoscopy, flexible; with removal of tumor(s), polyp(s), or other lesion(s) by snare technique Diagnosis Code(s): --- Professional --- Z12.11, Encounter for screening for malignant neoplasm of colon K64.8, Other hemorrhoids D12.3, Benign neoplasm of transverse colon (hepatic flexure or splenic flexure) CPT copyright 2020 [employer]. All rights reserved. The codes documented in this report are preliminary and upon butt sawyer review may be revised to meet current compliance requirements. Dr. Jayce Hawkins MD 10/06/2023 1:20:48 PM Number of Addenda: 0 Note Initiated On: 10/06/2023 12:33 PM Estimated Blood Loss: Estimated blood loss: none. Scope In: 12:53:22 PM Scope Out: 1:02:39 PM Procedure Note Jayce Hawkins MD - 10/06/2023 Patient Name: Isaiah Cordova Procedure Date: 10/06/2023 Date of : 1960 Admit Type: Outpatient Age: 62 Gender: Male Attending MD: Jayce Hawkins MD Procedure: Colonoscopy Indications: Screening for colorectal malignant neoplasm Providers: Jayce Hawkins MD (Doctor) Referring MD: Jayce Hawkins MD, LESLIE HOPE MD Medicines: Propofol per Anesthesia Complications: No immediate complications. Procedure: Pre-Anesthesia Assessment: - [place] Protocol: - Pre-procedure Verification: Prior to theprocedure, the patient's identity was verified by full name,date of and address. The patient's identity was verified on all pertinent medical records,including History and Physical, nursing assessment and pre-anesthesia assessment. Also prior to the procedure, a History and Physical was performed,and patient medications, allergies and sensitivitieswere reviewed. The patient's tolerance of previous anesthesia was reviewed. The patient is competent.The risks and benefits of the procedure and thesedation options and risks were discussed with the patient.All questions were answered and informed consent was obtained. - Marking: The endoscopic procedure was visually marked on a patient wrist band delineating thepatient name, proposed procedure and endoscopist'sinitials. - Time-Out: Prior to the start of the procedure,the patient's identification, proposed procedure,accurate signed consent, correctly labeled images andrecords, and need for prophylactic antibiotics were verifiedby the physician, the nurse and the anesthesiologistin the pre-procedure area in the procedure room in the endoscopy suite. - ASA Grade Assessment: III - A patient with severe systemic disease. - Airway Examination: normal oropharyngeal airwayand neck mobility. After obtaining informed consent, the scope waspassed under direct vision. Throughout the procedure, the patient's blood pressure, pulse, and oxygen saturations were monitored continuously. The COLONOSCOPE was introduced through the anus and advanced to the cecum, identified by appendiceal orifice and ileocecal valve. The colonoscopy was performed without difficulty. The patient tolerated the procedure well. The quality of the bowel preparation was excellent. Findings: The perianal and digital rectal examinations were normal. Non-bleeding internal hemorrhoids were found during retroflexion. The hemorrhoids were medium-sized. A 6 mm polyp was found in the transverse colon. The polyp wassessile. The polyp was removed with a cold snare. Resection and retrieval were complete. There is no endoscopic evidence of bleeding, diverticula,inflammation, mass, ulcerations or tumor in the entire colon. Procedure Code(s): --- Professional --- 44361, Colonoscopy, flexible; with removal of tumor(s), polyp(s), or other lesion(s) by snare technique Diagnosis Code(s): --- Professional --- Z12.11, Encounter for screening for malignantneoplasm of colon K64.8, Other hemorrhoids D12.3, Benign neoplasm of transverse colon (hepatic flexure or splenic flexure) CPT copyright 2020 [employer]. All rights reserved. The codes documented in this report are preliminary and upon butt sawyer reviewmay be revised to meet current compliance requirements. Dr. Jayce Hawkins MD 10/06/2023 1:20:48 PM Number of Addenda: 0 Note Initiated On: 10/06/2023 12:33 PM Estimated Blood Loss: Estimated blood loss: none. Scope In: 12:53:22 PM Scope Out: 1:02:39 PM IMPRESSION: - Non-bleeding internal hemorrhoids. - One 6 mm polyp in the transverse colon, removedwith a cold snare. Resected and retrieved. Recommendation: - Discharge patient to home. - Resume previous diet. - Continue present medications. - No aspirin, ibuprofen, naproxen, or other non-steroidal anti-inflammatory drugs for 7 days. - Resume Xarelto (rivaroxaban) at prior dose in 5days. - Await pathology results. - Repeat colonoscopy in 5 years for surveillance. - Return to GI clinic in 6 weeks. - The patient will be observed post-procedure,until all discharge criteria are met. Jayce Hawkins MD GI~PROCEDURE ORDERABLES Final Result from Last 3 Months or Most Recently Relevant to Health [place] [id number] [facility] ([facility]) Care Teams Transport Medic Relationship Specialty Start Date End Date Sharla Marrero MD [address] [facility] [address] [place] [id number] PCP - General Internal Medicine 10/06/23
--- OUTSIDE RECORDS SUMMARY | 2024-12-13 12:20 | XMS_ITS | Patient Health Record ---
Author Organization [facility] y & Otolaryngology [facility] Address [address] [place], [place] [id number] Care Team Providers Care Game Protector Name Role Phone Janes ENRIQUEZ, Sharla Primary Care Provider Stephan Parr Unavailable [phone] Allergies No Known Allergies Results Component Value Reference Range Notes HEPATIC FUNCTION PANEL Reviewed date:11/04/2024 02:04:00 PM Interpretation: Performing Lab: Notes/Report: CBC (INCLUDES DIFF/PLT) Reviewed date:11/04/2024 02:04:27 PM Interpretation: Performing Lab: Notes/Report: COMPREHENSIVE METABOLIC PANE L Reviewed date:11/04/2024 02:04:17 PM Interpretation: Performing Lab: Notes/Report: PT AND PTT Reviewed date:11/04/2024 02:04:08 PM Interpretation: Performing Lab: Notes/Report: CT Scan : Sinuses (CURRENT O RDER) Reviewed date:04/01/2024 04:52:11 PM Interpretation:Maxillary Sinusitis, Septal Deviation Performing Lab: Notes/Report: Maxillary Sinusitis, Septal Deviation Barium Swallow - Modified (F UTURE ORDER) Reviewed date:05/20/2024 08:45:52 AM Interpretation:spoke with Jenna at [place] and she stated she would fax over the report to 05/12/2024 [place]04/14/24 Performing Lab: Notes/Report: spoke with Jenna at [place] and she stated she would fax over the report to 05/12/2024 [place]04/14/24 CULTURE, AEROBIC AND ANAEROB IC W/GRAM STAIN Reviewed date:04/08/2024 02:26:49 PM Interpretation: Performing Lab: Notes/Report: Reason For Referral No Information Medications Medication SIG (Take, Route, Frequency, Duration) Notes Start Date End Date Status Xarelto 20 MG Tablet Oral; Duration: 30 Days Active hydrOXYzine HCl 25 MG Tablet 1 tablet as needed Orally twice a day; Duration: 7 days 10/29/2024 Active Jardiance 25 MG Tablet Oral; Duration: 90 Days Active hydrOXYzine HCl 25 MG Tablet 1 tablet Orally 3 times a day; Duration: 14 days 11/04/2024 Active Carvedilol 3.125 MG Tablet Oral; Duration: 30 Days Active Atorvastatin Calcium 40 MG Tablet Oral; Duration: 90 Days Acti ve amLODIPine Besylate 10 MG Tablet Oral; Duration: 90 Days Acti ve Keytruda Active Social History Tobacco Use: Social History [...] Problem Status W/U Status Risk Notes Problem Chronic sinusitis (68840490) Other chronic sinusitis (J32.8) Active confirmed Problem Dysphagia (41266806) Dysphagia (R13.10) Active confirmed Problem Oropharyngeal dysphagia (30916196) Oropharyngeal dysphagia (R13.12) Active confirmed Problem Pemphigus (93071027) Pemphigus (L10.9) Active confirmed Problem Coughing up blood (36266025) Coughing up blood (R04.2) Active confirmed Problem Malignant tumor of tongue (350135738) 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, [facility] [address] [place], [place] [id number] 10/26/2024 Stephan Mota Carcinoma of tongue C02.9 ; Coughing up blood R04.2 and Oropharyngeal dysphagia R13.[address] All[facility] Ot[facility]ology [place] [address] [place] [phone] 04/01/2024 Stephan Mota Post-nasal drainage R09.82 ; Other chronic sinusitis J32.8 ; Nasal obstruction J34.89 ; Carcinoma of tongue C02.9 and Dysphagia R13.[address] [facility] [place] [address] [place] [phone] 04/01/2024 Stephan Guerrierlard Nasal obstruction J34.[address] All[facility] Otol[facility]ology [address] [place] [phone] 05/20/2024 Stephan Mota Post-nasal drainage R09.82 ; Other chronic sinusitis J32.8 ; Carcinoma of tongue C02.9 and Oropharyngeal dysphagia R13.[address] [facility] [place] [address] [place] [phone] 11/04/2024 Stephan Guerrierlard Carcinoma of tongue C02.9 ; Coughing up blood R04.2 ; Oropharyngeal dysphagia R13.12 and Pemphigus L10.9 [facility], [facility] [address] [place], [place] [id number] 04/02/2024 Stephan Mota [facility], [facility] [address] [place], [place] [id number] 10/29/2024 Stephan Mota Itching L29.9 [facility] [address] [place], [place] [id number] 11/04/2024 Stephan Mota Assessments Encounter Date Diagnosis (ICD Code) Assessment Notes Treatment Notes Treatment Clinical Notes Section Notes 04/01/2024 Other chronic sinusitis (ICD-10 - J32.8) We reviewed his CT scan: sinus which showed: mild septal deviation, severe mucosal thickening in the R max sinusitis with mild on the L frontal sinusitis. We will treat this with 3 weeks worth of Ceftin BID. Additionally, we will obtain a culture (anaerobic and aerobic) of his sinuses and notify him his results and see if an alternate antibiotic is needed. Additionally, we discussed treatment for patients dysphagia and will proceed with a modified barium swallow which will be completed with a speech pathologist. We will contact Dr. King in regard to consultation when we receive results due to patients history SSCA. We will see the patient back in 3-4 weeks to reevaluate progression of patient's symptoms and to see if modifications to treatment are needed. Patient expressed understanding and agreement to current plan of care and all questions were answered. Patient knows to call back with additional concerns. 04/01/2024 Post-nasal drainage (ICD-10 - R09.82) 04/01/2024 Nasal obstruction (ICD-10 - J34.89) 05/20/2024 Post-nasal drainage (ICD-10 - R09.82) 10/26/2024 Coughing up blood (ICD-10 - R04.2) 10/26/2024 Carcinoma of tongue (ICD-10 - C02.9) 10/29/2024 Itching (ICD-10 - L29.9) 11/04/2024 Carcinoma of tongue (ICD-10 - C02.9) 11/04/2024 Oropharyngeal dysphagia (ICD-10 - R13.12) 05/20/2024 Carcinoma of tongue (ICD-10 - C02.9) Patient is advised to follow-up with oncology. We will perform a laryngoscopy in 6 months once he returns. 10/26/2024 Oropharyngeal dysphagia (ICD-10 - R13.12) 04/01/2024 Nasal obstruction (ICD-10 - J34.89) 11/04/2024 Coughing up blood (ICD-10 - R04.2) 05/20/2024 Other chronic sinusitis (ICD-10 - J32.8) We reviewed the culture results with the patient showing growth of S. aureus and K. pneumoniae. Patient's symptoms are much improved, and he is advised to continue usage of corticosteroid nasal spray (Flonase), antihistamine nasal spray (Azelastine), and NeilMed Nasal Saline Irrigations. We will see the patient back in 6 months to reevaluate progression of patient's symptoms and to see if modifications to treatment are needed. Patient expressed understanding and agreement to current plan of care and all questions were answered. Patient knows to call back with additional concerns. 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 This results in bolus accumulation and represents a poor prognosis for returning to normal swallow function. We agree with the previous recommendations for NPO status with PEG tube use. He may continue with TOWEL WEAVER intervention to help provide relief to his symptoms. We will see the patient back in 6 months to reevaluate progression of patient's symptoms and to see if modifications to treatment are needed. Patient expressed understanding and agreement to current plan of care and all questions were answered. Patient knows to call back with additional concerns. 04/01/2024 Carcinoma of tongue (ICD-10 - C02.9) 11/04/2024 Pemphigus (ICD-10 - L10.9) Dr. Mota spoke to patient's Oncologist. Patient will be referred to Dermatology if Pemphigus does not clear. 04/01/2024 Dysphagia (ICD-10 - R13.10) Depending on his barium swallow results we discussed potentially proceeding with a cricopharyngeal myotomy or possible Botox. We will contact Dr. Fernando Turner for consultations as well as a second opinion. Plan Of Treatment Next Appt Details Provider Name:Stephan owens, 01/06/2025 02:10:00 PM, [email or web address] [facility], [address], [place], [address], Insurance Providers Payer Name Payer Address Payer Phone Subscriber Number Group Number Insured Name Patient Relationship to Insured Coverage Start Date Coverage End Date [facility] [address] [place] [address] [id number] AUSTIN GUZMAN Self - patient is the insured Medical (General) History Medical History History ICD Code Cancer head and neck 2019 Hx of Heart attack 10/2023 GERD Surgical History Surgery Date(Month/Year) anterior neck mass removal Tongue reconstruction 2021 quadruple bypass lung partial resection 2022 lymphectomy ( 9 lymph nodes)
--- OUTSIDE RECORDS SUMMARY | 2024-12-13 12:20 | XMS_ITS | Patient Health Record ---
Author Organization [facility] Ariana wagner Billing Info Address [address] [place], [place] [address] Care Team Providers Care Heater Furnace Name Role Phone KINGSTON KEITH [phone] Reason For Referral No Information Medications Medication SIG (Take, Route, Frequency, Duration) Notes Start Date End Date Status Levothyroxine Sodium 150 MCG 1 tablet Orally Once a day FIRST THING IN THE AM WITH FULL GLASS OF WATER 30MIN BEFORE EATING OR TAKING OTHER MEDICATIONS for 1 month Active Atorvastatin Calcium 40 MG 1 tablet Oral ly Once a day AT NIGHT for 1 month Active Losartan Potassium-HCTZ 100-25 MG 1 tablet Orally Once a day IN THE AM for 1 month 08/05/2014 Active Adult Aspirin EC Low Strength 81 MG 1 tablet Orally Once a day for 30 day(s) 09/22/2014 Active Amlodipine Besylate 10 MG 1 tablet Orall y Once a day AT NIGHT for 1 month Active GlipiZIDE 5 MG 1 tablet Orally Once a day IN THE AM for 1 month Active Metformin HCl 1000 MG 1 tablet with meal s Orally Twice a day for 30 day(s) Active Social History Tobacco Use: Social History Observation Description Date Details (start date - stop date) Never Smoker NA - NA Tobacco Status: Question Answer Notes Patient is a never smoker Problems Problem Type SNOMED Code ICD Code Onset Dates Problem Status W/U Status Risk Notes Problem 943438675 Hypothyroidism (244.9) Active confirmed Problem 18584908 HTN (hypertensio n) (401.9) Active confirmed 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 Problem 13783150 HLD (hyperlipidemia) (272.4) Active confirmed Problem 354382284 Morbid obesity w ith BMI of 45.0-49.9, adult (278.01) Active confirmed Problem 19241186 Diabetes (250.00) Active confirmed Plan Of Treatment No Information Insurance Providers Payer Name Payer Address Payer Phone Subscriber Number Group Number Insured Name Patient Relationship to Insured Coverage Start Date Coverage End Date [facility] [employer] [address] [place], [place] [id number] Jennie Mosquera Spouse - patient is the spouse of the insured 5 Medical (General) History Medical History History ICD Code GERD Diabetes mellitus type II uncontrolled HTN HLD morbid obesity hypothyroidism Rodriguez's Palsy Surgical History Surgery Date(Month/Year) cyst removal from neck 2013 tonsillectomy 1966 tymponostomy
[2024-12-13 13:09] LABS: Free T3 3.67 pg/mL (2.45-5.93); Free T4 Free Thyroxine 2.19 ng/dL (0.78-2.19)
[2024-12-13 13:24] VITALS: BP 115/82; PULSE 92; RESP 18; O2SAT 98
[2024-12-13] MEDS: AMOXICILLIN/CLAVULANATE K SUSP 400-57 MG/5 ML 5 ML UD 800 MG FEED TUBE (14:22)
[2024-12-13] MEDS: AZITHROMYCIN 200 MG/5 ML SUSPENSION UD 500 MG FEED TUBE (14:23)
== END 2024-12-13 14:34 | disposition home or self-care (01) ==
PROVIDERS: Emergency Provider Student in an Organized Health Care Education/Training Program
DX: R06.02 Shortness of breath (principal); I45.10 Unspecified right bundle-branch block; I44.4 Left anterior fascicular block; D64.9 Anemia, unspecified; J18.9 Pneumonia, unspecified organism; I77.819 Aortic ectasia, unspecified site; I87.1 Compression of vein; E05.90 Thyrotoxicosis, unspecified without thyrotoxic crisis or storm; Z20.822 Contact with and (suspected) exposure to COVID-19; E11.9 Type 2 diabetes mellitus without complications; I25.10 Atherosclerotic heart disease of native coronary artery without angina pectoris; Z86.718 Personal history of other venous thrombosis and embolism; Z85.819 Personal history of malignant neoplasm of unspecified site of lip, oral cavity, and pharynx
CPT/HCPCS: 36415; 71046; 71275; 80053; 82550; 83880; 84439; 84443; 84481; 84484; 85025; 87637; 93005; 99284; A9270; Q9967